=== PATIENT | male | born 1955 | race Caucasian/White ===

== ENCOUNTER 2021-03-19 09:06 | Inpatient (IN) | payer MEDICARE, OTHER ==
[~2021-03-19] VITALS: Ht 17.8 cm; Wt 59.9 kg
--- NOTE | 2021-03-19 09:10 | NUR ---
TO ER BED 1, [facility] FOR NOTED AMS. BG 56 GIVEN D10 FLAME BURNER. PT RESPONSIVE TO TOUCH/PAIN, DIALYSIS ACCESS RT CHEST. AT BEDSIDE
--- NOTE | 2021-03-19 09:17 | NUR ---
IV LINE ESTABLISHED BLOOD DRAWN AND SENT TO LAB.
[2021-03-19] MEDS ORDERED: IV D5/ 0.9% NACL 1,000 ML IV ONE (09:30)
[2021-03-19] MEDS ORDERED: VANCOMYCIN 1 GM in IV D5W 250 ML IV ONE (09:30)
[2021-03-19] MEDS ORDERED: CEFEPIME 1 GM in IV D5W 50 ML IV ONE (09:30)
[2021-03-19 09:35] LABS: BASOPHILS # (AUTO) 0.1 K/uL (0.0-0.2); BASOPHILS % (AUTO) 0.6 % (0.0-2.0); HEMATOCRIT 25 % (39-51); HEMOGLOBIN 7.8 g/dL (13.5-17.5); LYMPHOCYTES # (AUTO) 2.1 K/uL (0.8-4.8); LYMPHOCYTES % (AUTO) 12.8 % (20.0-44.0); MEAN CORPUSCULAR HGB CONC 31 g/dl (31.0-36.0); MEAN CORPUSCULAR VOLUME 87 fL (80-96); MONOCYTES # (AUTO) 2.2 K/uL (0.1-1.30); MONOCYTES % (AUTO) 13.7 % (2.0-12.0); NEUTROPHILS # (AUTO) 11.6 K/uL (1.8-8.9); NEUTROPHILS % (AUTO) 71.9 % (43.0-81.0); RED BLOOD CELL COUNT(AUTO) 2.86 MIL/uL (4.5-6.0); WHITE BLOOD COUNT (AUTO) 16.2 K/uL (4.3-11.0)
--- NOTE | 2021-03-19 09:38 | NUR ---
BARREL RAISER AT BEDSIDE FOR XRAY.
--- NOTE | 2021-03-19 09:39 | NUR ---
COVID SWAB DONE AND SENT TO LAB
--- NOTE | 2021-03-19 09:39 | NUR ---
REPAIRER AUTO CLOCKS AT BEDSIDE
[2021-03-19 10:07] LABS: ALANINE AMINOTRANSFERASE 10 U/L (12-78); ALBUMIN 1.9 g/dL (3.4-5.0); ALKALINE PHOSPHATASE 126 U/L (46-116); ASPARTATE AMINOTRANSFERASE 33 U/L (15-37); BILIRUBIN,DIRECT 0.2 mg/dL (0.0-0.2); BILIRUBIN,TOTAL 0.4 mg/dL (0.2-1.0); CALCIUM, SERUM 7.7 mg/dL (8.5-10.1); CARBON DIOXIDE 25 mmol/L (21-32); CHLORIDE 95 mmol/L (98-107); POTASSIUM 5.7 mmol/L (3.5-5.1); SODIUM SERUM 134 mmol/L (136-145); TOTAL PROTEIN, SERUM 7.7 g/dL (6.4-8.2)
[2021-03-19 10:10] LABS: CREATININE 8.6 mg/dL (0.6-1.3); GLUCOSE 50 mg/dL (74-106); UREA NITROGEN, BLOOD 86 mg/dL (7-18)
[2021-03-19] MEDS ORDERED: HYDR-4076 PO (10:12)
[2021-03-19] MEDS ORDERED: GABA-532 PO (10:12)
[2021-03-19] MEDS ORDERED: LAMO25TA10 PO (10:12)
[2021-03-19] MEDS ORDERED: TIZA4TAB5 PO (10:12)
[2021-03-19] MEDS ORDERED: LEVO150T8 PO (10:12)
[2021-03-19] MEDS ORDERED: FAMO20TA8 PO (10:12)
[2021-03-19] MEDS ORDERED: HYDR4TAB4 PO (10:12)
[2021-03-19] MEDS ORDERED: ALBU1.257 IH (10:12)
[2021-03-19] MEDS ORDERED: HYDR4TAB57 PO (10:12)
[2021-03-19] MEDS ORDERED: ACET-868 PO (10:12)
[2021-03-19] MEDS ORDERED: PRAV20TA4 PO (10:12)
[2021-03-19] MEDS ORDERED: BISA10SU11 RC (10:12)
[2021-03-19] MEDS ORDERED: VANC1VIA4 IV (10:12)
[2021-03-19] MEDS ORDERED: AMLO-213 PO (10:12)
[2021-03-19] MEDS ORDERED: DIVA-78 PO (10:12)
[2021-03-19] MEDS ORDERED: INSU100V7 SQ (10:12)
[2021-03-19] MEDS ORDERED: LIOT5TAB11 PO (10:12)
[2021-03-19] MEDS ORDERED: SENN-261 PO (10:12)
[2021-03-19] MEDS ORDERED: CLON0.1T PO (10:12)
[2021-03-19] MEDS ORDERED: PETR113O TP (10:12)
[2021-03-19] MEDS ORDERED: TRAZ-182 PO (10:12)
[2021-03-19] MEDS ORDERED: INSU100V27 SQ (10:12)
[2021-03-19] MEDS ORDERED: MERO500V23 IV (10:12)
[2021-03-19] MEDS ORDERED: MESA1.2T PO (10:12)
[2021-03-19] MEDS ORDERED: IPRA0.2S9 IH (10:12)
[2021-03-19] MEDS ORDERED: APIX2.5T PO (10:12)
--- NOTE | 2021-03-19 10:14 | NUR ---
MOVE SHEET SUBMITTED.
--- NOTE | 2021-03-19 10:27 | NUR ---
TAKEN TO CT
[2021-03-19 10:43] LABS: PLATELET COUNT (AUTO) 975 K/uL (150-450)
--- NOTE | 2021-03-19 10:52 | NUR ---
[facility] CALLED WHITE SUGAR SUPERVISOR PAGED.
--- NOTE | 2021-03-19 11:06 | NUR ---
PT IS AWAKE, AAOX3, C/O PAIN IN HIS NECK
--- NOTE | 2021-03-19 11:48 | NUR ---
CALLED [facility] FOR THE SECOND TIME. WILL PAGED HOSPITALIST (ISABEL OLIVARES) AWAITING CALL BACK.
--- NOTE | 2021-03-19 14:16 | NUR ---
report given to [place] RN for JOHN
[2021-03-19] MEDS ORDERED: BISACODYL SUPP (10 MG) 10 MG/SUPP.RECT SUPP.RECT RC PRN (15:00)
--- NOTE | 2021-03-19 15:00 | NUR ---
RN NOTES HEMODIALYSIS CONSENT SIGNED.
[2021-03-19] MEDS ORDERED: ONDANSETRON HCL/PF 4 MG/2 ML VIAL IVP PRN (15:30)
[2021-03-19] MEDS ORDERED: ZOLPIDEM TARTRATE 5 MG TABLET PO PRN (15:30)
[2021-03-19] MEDS ORDERED: Z GUARD REMEDY 2 OZ OINT TP PRN (15:30)
[2021-03-19] MEDS ORDERED: MORPHINE SULFATE INJ 2 MG/ML DISP.SYRIN IV PRN (15:30)
[2021-03-19] MEDS: ALBUTEROL FS 2.5 MG/0.5 ML VIAL.NEB NEB SCH ×3 (15:30→20:14)
[2021-03-19] MEDS: IPRATROPIUM NEB FS 0.5 MG/2.5 ML AMPUL.NEB NEB SCH ×3 (15:30→20:14)
[2021-03-19] MEDS ORDERED: MAG HYDROX/AL HYDROX/SIMETH 30 ML UDC PO PRN (15:30)
[2021-03-19] MEDS ORDERED: MAGNESIUM HYDROXIDE 30 ML UDC PO PRN (15:30)
--- NOTE | 2021-03-19 15:38 | NUR ---
RN NOTES PT REQUESTED MORPHINE PAIN 10 OUT OF 10 RETURNED WITH 2ML OF MORPHINE. PT ASLEEP AND ABLE TO AWAKE BUT DROWSY. WILL HOLD MORPHINE AND RETURNED MORPHINE. WILL RECHECK PAIN ONCE PT AWAKES.
--- NOTE | 2021-03-19 15:55 | NUR ---
RT HHN tx not given at this time due to pending PCR results.
[2021-03-19] MEDS: GABAPENTIN 100 MG CAPSULE PO SCH (16:54)
[2021-03-19] MEDS: APIXABAN 2.5 MG TABLET PO SCH (16:55)
--- NOTE | 2021-03-19 17:00 | NUR ---
RN NOTES ABX NOT ADMINISTERED PER DIALYSIS NURSE. WILL ADMINISTER AFTER DIALYSIS
[2021-03-19] MEDS: MEROPENEM 500 MG in IV NS 0.9% 50 ML IV SCH (18:50)
--- NOTE | 2021-03-19 19:20 | NUR ---
Preliminary results of echo showed EF 70% with moderate PE and large pleural eff. Advised RN and sent message to packaging assembler of initial findings.
--- NOTE | 2021-03-19 19:30 | NUR ---
1929 breathing tx held due to pending pcr result. rn notified
[2021-03-19] MEDS: MORPHINE SULFATE INJ 2 MG/ML DISP.SYRIN IV PRN (19:50)
[2021-03-19 20:00] VITALS: BP 150/88
--- NOTE | 2021-03-19 20:16 | NUR ---
RN NOTE PATIENT IN BED, RESTING. EASILY AROUSED. ALERT AND ORIENTED X3. ON O2 2L VIA NASAL CANNULA, O2 SAT 96%. CRACKLES NOTED UPON LUNG AUSCULTATION. HEAD OF BED KEPT ELEVATED. COMPLAINED OF SEVERE NECK PAIN, ADMINISTERED MORPHINE PRN ORDERED. IV ACCESS ON LEFT ARM # 20 PATENT AND INTACT. ALSO NOTED WITH RIGHT CHEST PERMACATH, DRESSING DRY AND INTACT. BED LOCKED AND IN LOWEST POSITION. CALL LIGHT WITHIN REACH. ALL NEEDS ANTICIPATED.
[2021-03-19 20:52] LABS: ABG BASE EXCESS 0.9 mmol/L; ABG OXYGEN SATURATION 95.1 % (92.0-98.5); ABG PCO2 37.2 mmHg (35.0-45.0); ABG PH 7.445 (7.350-7.450); ABG PO2 79.8 mmHg (75.0-100.0); AaDO2 75.9 mmHg; COHb 0.8 % (0.5-1.5); MetHb 0.3 % (0.0-1.5); O2Hb 94.1 % (94.0-97.0); SITE, ABG Right Radial; VENT MODE, BG N/C 2L
[2021-03-19] MEDS: LamoTRIgine 25 MG TABLET PO SCH (21:27)
[2021-03-19] MEDS: ATORVASTATIN 10 MG TABLET PO SCH (21:28)
[2021-03-19] MEDS: TRAZODONE 50 MG TABLET PO SCH (21:28)
[2021-03-19] MEDS: hydrALAZINE HCL 25 MG TABLET PO SCH (21:28)
[2021-03-19] MEDS: CLONIDINE HCL 0.1 MG TABLET PO SCH (21:29)
[2021-03-19 21:59] LABS: THYROID STIMULATING HORMONE 38.854 uIU/mL (0.358-3.74)
[2021-03-19] MEDS: IV D5/0.45 NACL 1,000 ML IV PRN (23:07)
[2021-03-20] VITALS: BP 152/91
[2021-03-20] MEDS: MORPHINE SULFATE INJ 2 MG/ML DISP.SYRIN IV PRN ×4 (01:23→19:41)
[2021-03-20 04:00] VITALS: BP 149/92
[2021-03-20] MEDS: hydrALAZINE HCL 25 MG TABLET PO SCH ×3 (04:39→21:14)
[2021-03-20] MEDS: CLONIDINE HCL 0.1 MG TABLET PO SCH ×3 (04:39→21:14)
[2021-03-20 07:00] LABS: BASOPHILS % (AUTO) 0.4 % (0.0-2.0); HEMATOCRIT 22 % (39-51); HEMOGLOBIN 7.1 g/dL (13.5-17.5); LYMPHOCYTES # (AUTO) 1.2 K/uL (0.8-4.8); LYMPHOCYTES % (AUTO) 10.9 % (20.0-44.0); MEAN CORPUSCULAR HGB CONC 33 g/dl (31.0-36.0); MEAN CORPUSCULAR VOLUME 87 fL (80-96); MONOCYTES # (AUTO) 1.8 K/uL (0.1-1.30); MONOCYTES % (AUTO) 16.2 % (2.0-12.0); NEUTROPHILS # (AUTO) 6.8 K/uL (1.8-8.9); NEUTROPHILS % (AUTO) 62.5 % (43.0-81.0); PLATELET COUNT (AUTO) 806 K/uL (150-450); WHITE BLOOD COUNT (AUTO) 10.9 K/uL (4.3-11.0)
--- NOTE | 2021-03-20 07:14 | NUR ---
RN NOTE PATIENT ALERT AND ORIENTED X3. ON O2 2L VIA NASAL CANNULA, O2 SAT 96%. MORPHINE GIVEN ORDERED FOR SEVERE PAIN ON NECK. IV ACCESS ON LEFT ARM # 20 PATENT AND INTACT, RUNNING D5 1/2 NS @ 75ML/HR. RIGHT CHEST PERMACATH DRESSING DRY AND INTACT. BED LOCKED AND IN LOWEST POSITION. CALL LIGHT WITHIN REACH. ENDORSED TO AM SHIFT.
--- NOTE | 2021-03-20 07:28 | NUR ---
RN OPENING NOTES RECEIVED PT IN BED SLEEPING. PT A/OX3. ON O2 NC W/ O2 SAT 96%. IV ACCESS ON LEFT ARM # 20 PATENT AND INTACT, RUNNING D5 1/2 NS @ 75ML/HR. RIGHT CHEST PERMACATH DRESSING DRY AND INTACT. SAFETY MEASURES RENDERED, BED LOCKED AND IN LOWEST POSITION. CALL LIGHT WITHIN REACH. WILL CONTINUE TO MONITOR.
[2021-03-20 07:37] LABS: ALBUMIN 1.7 g/dL (3.4-5.0); BILIRUBIN,TOTAL 0.4 mg/dL (0.2-1.0); CALCIUM, SERUM 7.6 mg/dL (8.5-10.1); CREATININE 5.1 mg/dL (0.6-1.3); MAGNESIUM 2.8 mg/dL (1.8-2.4); PHOSPHORUS 5.3 mg/dL (2.5-4.9); POTASSIUM 4.3 mmol/L (3.5-5.1); TOTAL PROTEIN, SERUM 6.9 g/dL (6.4-8.2)
[2021-03-20] MEDS: BLOOD SUGAR DIAGNOSTIC 1 EACH STRIP IN SCH ×4 (07:46→21:54)
--- NOTE | 2021-03-20 07:46 | NUR ---
RN NOTES; B/S TAKEN AT 168. NO SLIDING SCALE DUE TO PT COMING IN FOR HYPOGLYCEMIA. WILL CONTINUE TO MONITOR.
[2021-03-20 08:00] VITALS: BP 161/98
[2021-03-20] MEDS: IPRATROPIUM NEB FS 0.5 MG/2.5 ML AMPUL.NEB NEB SCH ×4 (08:00→19:59)
[2021-03-20] MEDS: ALBUTEROL FS 2.5 MG/0.5 ML VIAL.NEB NEB SCH ×4 (08:00→20:00)
--- NOTE | 2021-03-20 08:00 | NUR ---
RT Pt received awake and alert on 2L nasal cannula with adequate SpO2. HHN tx not given at this time due to pending PCR results. No SOB or respiratory distress noted.
[2021-03-20] MEDS: GABAPENTIN 100 MG CAPSULE PO SCH ×2 (08:52→16:28)
[2021-03-20] MEDS: LamoTRIgine 25 MG TABLET PO SCH ×2 (08:52→21:14)
[2021-03-20] MEDS: AMLODIPINE BESYLATE 10 MG TABLET PO SCH (08:52)
[2021-03-20] MEDS: PANTOPRAZOLE 40 MG VIAL IV SCH (08:53)
[2021-03-20] MEDS: DIVALPROEX SODIUM 500 MG TABLET.DR PO SCH (08:53)
[2021-03-20] MEDS: APIXABAN 2.5 MG TABLET PO SCH ×2 (08:53→16:29)
[2021-03-20] MEDS ORDERED: LEVOTHYROXINE SODIUM 50 MCG TABLET PO SCH (09:00)
[2021-03-20] MEDS ORDERED: VANCOMYCIN 500 MG in IV D5W 100 ML IV PRN (10:00)
[2021-03-20 10:11] LABS: EOSINOPHILS % (MANUAL) 2 % (0-4); LYMPHOCYTES % (MANUAL) 12 % (16-48); MONOCYTES % (MANUAL) 16 % (0-11.0); NEUTROPHILS % (MANUAL) 70 (42-76)
[2021-03-20 12:00] VITALS: BP 148/82
--- NOTE | 2021-03-20 12:00 | NUR ---
RN NOTES; B/S TAKEN AT 249. NO ORDER FOR COVERAGE. NOTIFIED DNP REGARDING PT B/S RESULTS. AWAITING FOR FURTHER ORDERS.
[2021-03-20] MEDS: IV D5/0.45 NACL 1,000 ML IV PRN (15:23)
[2021-03-20 16:00] VITALS: BP 146/87
[2021-03-20] MEDS: MEROPENEM 500 MG in IV NS 0.9% 50 ML IV SCH (16:30)
--- NOTE | 2021-03-20 18:32 | NUR ---
RN CLOSING NOTES; PT IN BED RESTING. PT A/OX3. ON O2 NC W/ O2 SAT 98%. IV ACCESS ON LEFT ARM # 20 PATENT AND INTACT, RUNNING D5 1/2 NS @ 75ML/HR. RIGHT CHEST PERMACATH DRESSING DRY AND INTACT. NO SIGNIFICANT CHANGE IN CONDITION. SAFETY MEASURES RENDERED, BED LOCKED AND IN LOWEST POSITION. CALL LIGHT WITHIN REACH. ENDORSED TO DISTRICT CLAIMS MANAGER RN IN STABLE CONDITION.
--- NOTE | 2021-03-20 20:10 | NUR ---
RN NOTES PATIENT ALERT AND ORIENTED X2-3. ABLE TO MAKE NEEDS KNOWN. ON O2 2L VIA NASAL CANNULA, NO SIGNS OF ACUTE RESPIRATORY DISTRESS. LEFT ARM #20 RUNNING D5 1/2 NS @ 75ML/HR, NO SIGNS OF INFILTRATION. COMPLAINED OF SEVERE NECK PAIN, MORPHINE PRN GIVEN ORDERED. BED LOCKED AND IN LOWEST POSITION. CALL LIGHT WITHIN REACH. ALL NEEDS ANTICIPATED.
[2021-03-20] MEDS: ATORVASTATIN 10 MG TABLET PO SCH (21:13)
[2021-03-20] MEDS: TRAZODONE 50 MG TABLET PO SCH (21:13)
--- NOTE | 2021-03-20 21:59 | NUR ---
BLOOD SUGAR 211, NO SLIDING SCALE COVERAGE AT THIS TIME. PATIENT REMAINS ALERT AND RESPONSIVE, ON 2L VIA NASAL CANNULA. ENDORSED TO ADELE HAGER FOR CONTINUITY OF CARE.
--- NOTE | 2021-03-20 22:00 | NUR ---
RN NOTE RECEIVED HAND-OFF REPORT FROM RN FOR CONTINUITY OF CARE. PT IN BED, AWAKE, A/O X2-3, DENIES PAIN @THIS TIME. ON O2 @2LPM VIA NC. NO SOB. IV SITE: L-ARM #20 INTACT/PATENT. PT IN NO ACUTE DISTRESS. SAFETY MEASURES IN PLACE, BED IN LOWEST LOCKED POSITION, S/R UPX2, CALL LIGHT WITHIN REACH. WILL CONT TO MONITOR.
[2021-03-21] VITALS (13 sets, daily range): BP systolic 110–151; BP diastolic 63–121
[2021-03-21] MEDS: MORPHINE SULFATE INJ 2 MG/ML DISP.SYRIN IV PRN ×3 (00:29→08:46)
--- NOTE | 2021-03-21 03:08 | NUR ---
RN NOTE TRANSFERRED PT TO MS RM.[id number] WITH BELONGINGS. PT IN STABLE CONDITION. REPORT GIVEN TO MELIDA HAGER, FOR CONTINUITY OF CARE.
--- NOTE | 2021-03-21 03:09 | NUR ---
MS RN OPENING NOTE PT TRANSPORTED VIA GURNEY TO MED SURG UNIT FROM [facility]. RECEIVED PT AWAKE IN BED. A/O X2-3. PT IS ON 2LPM O2 VIA NC SATTING AT 97%. NO SOB OR S/S OF RESPIRATORY DISTRESS NOTED. PT HAS NO C/O PAIN OR DISCOMFORT AT THIS TIME. IV ACCESS IN LEFT ARM #20, INTACT AND PATENT. PT NOTED WITH RCW PERMACATH INTACT. ORIENTED PT TO STAFF, UNIT, AND ROOM. SAFETY PRECAUTIONS MAINTAINED. BED IN LOWEST LOCKED POSITION, HOB ELEVATED, SIDE RAILS UP X2. CALL LIGHT AND TABLE WITHIN REACH. WILL CONTINUE WITH PLAN OF CARE.
--- NOTE | 2021-03-21 04:38 | NUR ---
RN PAIN PT C/O THROBBING PAIN IN THE LEFT AND RIGHT NECK, RATED 9/10 ON PAIN SCALE. VSS. PER PT REQUEST, ADMINISTERED MORPHINE 2MG IV Q4H PRN FOR PAIN. WILL REASSESS IN 30 MINS AND CONTINUE TO MONITOR.
[2021-03-21] MEDS: IV D5/0.45 NACL 1,000 ML IV PRN ×2 (04:41→23:18)
[2021-03-21] MEDS: hydrALAZINE HCL 25 MG TABLET PO SCH ×3 (05:08→20:55)
[2021-03-21] MEDS: CLONIDINE HCL 0.1 MG TABLET PO SCH ×3 (05:08→20:54)
[2021-03-21] MEDS: BLOOD SUGAR DIAGNOSTIC 1 EACH STRIP IN SCH ×4 (06:31→22:41)
--- NOTE | 2021-03-21 06:32 | NUR ---
MS RN CLOSING NOTE PT IS AWAKE IN BED. A/O X2-3. PT IS ON 2LPM O2 VIA NC SATTING AT 95%. NO SOB OR S/S OF RESPIRATORY DISTRESS NOTED. PT HAS NO C/O PAIN OR DISCOMFORT AT THIS TIME. IV ACCESS IS INTACT, PATENT, AND FLUSHING WELL. PT NOTED WITH RCW PERMACATH INTACT. ALL NEEDS HAVE BEEN MET. SAFETY PRECAUTIONS MAINTAINED AT ALL TIMES. BED IN LOWEST LOCKED POSITION, HOB ELEVATED, SIDE RAILS UP X2. CALL LIGHT AND TABLE WITHIN REACH. WILL ENDORSE TO ONCOMING NURSE FOR JOHN.
[2021-03-21 07:13] LABS: BASOPHILS # (AUTO) 0.1 K/uL (0.0-0.2); BASOPHILS % (AUTO) 0.7 % (0.0-2.0); EOSINOPHILS % (AUTO) 10.8 % (0.0-6.0); LYMPHOCYTES # (AUTO) 1.6 K/uL (0.8-4.8); LYMPHOCYTES % (AUTO) 14.5 % (20.0-44.0); MEAN CORPUSCULAR HGB CONC 32 g/dl (31.0-36.0); MEAN CORPUSCULAR VOLUME 88 fL (80-96); MONOCYTES # (AUTO) 2.1 K/uL (0.1-1.30); MONOCYTES % (AUTO) 19.1 % (2.0-12.0); NEUTROPHILS % (AUTO) 54.9 % (43.0-81.0); PLATELET COUNT (AUTO) 707 K/uL (150-450); RED BLOOD CELL COUNT(AUTO) 2.23 MIL/uL (4.5-6.0)
[2021-03-21 07:30] LABS: HEMATOCRIT 20 % (39-51)
--- NOTE | 2021-03-21 07:30 | NUR ---
MS RN OPENING NOTES RECEIVED PT IS AWAKE ON BED AND A/O X2-3. PT IS ON 2LPM O2 VIA NC WITH O2 SAT AT 99%. NO SOB OR S/S OF RESPIRATORY DISTRESS NOTED. WITH COMPLAINTS OF NECK PAIN AT 10/10 PAIN SCALE. COMFORT MEASURES PROVIDED. WITH IV ACCESS AT LEFT ARM G20 WITH IVF D5 1/2NS AT 75ML/HR, INTACT, PATENT, AND FLUSHING WELL. PT NOTED WITH RCW PERMACATH INTACT. SAFETY PRECAUTIONS MAINTAINED AT ALL TIMES. BED IN LOWEST LOCKED POSITION, HOB ELEVATED, SIDE RAILS UP X2. CALL LIGHT AND TABLE WITHIN REACH. WILL CONTINUE TO MONITOR.
[2021-03-21 07:38] LABS: HEMOGLOBIN 6.4 g/dL (13.5-17.5)
--- NOTE | 2021-03-21 07:38 | NUR ---
MS RN NOTES RECEIVED A CALL FROM THE LAB NAMED AD RELAYING CRITICAL LAB RESULTS. HGB-6.[address] IS [address] OLIVARES MADE AWARE OF THE PATIENT'S HGB AND HCT RESULTS.
[2021-03-21 07:54] LABS: POTASSIUM 4.5 mmol/L (3.5-5.1)
[2021-03-21 07:55] LABS: CALCIUM, SERUM 7.4 mg/dL (8.5-10.1); CREATININE 5.9 mg/dL (0.6-1.3); PHOSPHORUS 6.3 mg/dL (2.5-4.9)
[2021-03-21] MEDS: ALBUTEROL FS 2.5 MG/0.5 ML VIAL.NEB NEB SCH ×4 (08:10→19:33)
[2021-03-21] MEDS: IPRATROPIUM NEB FS 0.5 MG/2.5 ML AMPUL.NEB NEB SCH ×4 (08:10→19:33)
[2021-03-21 08:49] LABS: EOSINOPHILS % (MANUAL) 9 % (0-4); LYMPHOCYTES % (MANUAL) 19 % (16-48); MONOCYTES % (MANUAL) 14 % (0-11.0); NEUTROPHILS % (MANUAL) 58 (42-76)
[2021-03-21] MEDS: PANTOPRAZOLE 40 MG VIAL IV SCH (08:51)
[2021-03-21] MEDS: GABAPENTIN 100 MG CAPSULE PO SCH ×2 (08:51→17:16)
[2021-03-21] MEDS: LEVOTHYROXINE SODIUM 50 MCG TABLET PO SCH (08:51)
[2021-03-21] MEDS: AMLODIPINE BESYLATE 10 MG TABLET PO SCH (08:52)
[2021-03-21] MEDS: DIVALPROEX SODIUM 500 MG TABLET.DR PO SCH (08:52)
[2021-03-21] MEDS: APIXABAN 2.5 MG TABLET PO SCH (09:00)
[2021-03-21] MEDS: LamoTRIgine 25 MG TABLET PO SCH ×2 (09:21→21:06)
--- NOTE | 2021-03-21 09:43 | NUR ---
MS RN NOTES CALLED BLOOD BANK NAMED LOBO TO BE INFORMED FOR PATIENT'S BLOOD TRANSFUSION. BLOOD TRANSFUSION AND HEMODIALYSIS CONSENT BEEN SIGNED BY THE PATIENT.
[2021-03-21] MEDS ORDERED: EPOETIN ALFA-EPBX 4,000 UNIT/ML VIAL IV PRN (11:00)
--- NOTE | 2021-03-21 13:23 | NUR ---
MS RN NOTES PATIENT FOR BLOOD TRANSFUSION PER DOCTOR'S ORDER. BLOOD TRANSFUSION CONSENT SIGNED. CHECKED BLOOD PRODUCT WITH AN RN ADE BAUER. VITAL SIGNS CHECKED: BP-110/63, CA-61BPM, TEMP-98F, RR-19 AND 02 SAT AT 98%. BLOOD TRANSFUSION TO BE DONE WITH HEMODIALYSIS WITH HEMODIALYSIS PERSONNEL NAMED ARCELIA. WILL CONTINUE TO MONITOR FOR ANY UNUSUAL REACTIONS.
[2021-03-21] MEDS: ACETAMINOPHEN 325 MG TABLET PO PRN ×2 (15:52→20:56)
[2021-03-21] MEDS: MEROPENEM 500 MG in IV NS 0.9% 50 ML IV SCH (17:16)
--- NOTE | 2021-03-21 19:20 | NUR ---
MS RN CLOSING NOTES PT IS AWAKE ON BED AND A/O X2-3. PT IS ON 2LPM O2 VIA NC WITH O2 SAT AT 99%. NO SOB OR S/S OF RESPIRATORY DISTRESS NOTED. COMFORT MEASURES PROVIDED. WITH IV ACCESS AT LEFT ARM G20 WITH IVF D5 1/2NS AT 75ML/HR, INTACT, PATENT, AND FLUSHING WELL. PT NOTED WITH RCW PERMACATH INTACT. SAFETY PRECAUTIONS MAINTAINED AT ALL TIMES. BED IN LOWEST LOCKED POSITION, HOB ELEVATED, SIDE RAILS UP X2. CALL LIGHT AND TABLE WITHIN REACH. WILL ENDORSE TO NEXT SHIFT.
--- NOTE | 2021-03-21 19:30 | NUR ---
Received patient alert when name spoken opens eye LEFT arm IV red and swollen dc'd and restarted right arm g18 IV restarted patient feels warm to touch temp 100.3 tylenol is ordered offered a drink of juice given and swallowed w/o problem asp precautions his phone is near him follows directions
[2021-03-21] MEDS: ATORVASTATIN 10 MG TABLET PO SCH (21:06)
[2021-03-21] MEDS: TRAZODONE 50 MG TABLET PO SCH (21:06)
--- NOTE | 2021-03-22 03:51 | NUR ---
CLOSING NOTES: ALERT AND ORIENTATED x2 WILL MAKE HIS SIMPLE NEEDS KNOWN SPEECH CLEAR ASPIRATION PRECAUTIONS THIS 12 HOURS OFFERED FLUIDS AND SWALLOWED W/O PROBLEM BLOOD SUGARS NOT DROPPING BELOW NORM SKIN WARM AND DRY NEEDS MAX ASSIST TO MOVE ABOUT IN BED GOOD ABOUT BEING REPOSITIONED
[2021-03-22] MEDS: hydrALAZINE HCL 25 MG TABLET PO SCH ×2 (04:09→12:32)
[2021-03-22] MEDS: CLONIDINE HCL 0.1 MG TABLET PO SCH ×2 (04:10→12:32)
[2021-03-22] MEDS: BLOOD SUGAR DIAGNOSTIC 1 EACH STRIP IN SCH ×2 (05:44→11:43)
[2021-03-22] MEDS: IPRATROPIUM NEB FS 0.5 MG/2.5 ML AMPUL.NEB NEB SCH ×3 (07:21→15:37)
[2021-03-22] MEDS: ALBUTEROL FS 2.5 MG/0.5 ML VIAL.NEB NEB SCH ×3 (07:21→15:37)
[2021-03-22] MEDS: LEVOTHYROXINE SODIUM 50 MCG TABLET PO SCH (07:30)
[2021-03-22] MEDS ORDERED: PANTOPRAZOLE 40 MG TABLET.DR PO SCH (07:30)
--- NOTE | 2021-03-22 07:45 | NUR ---
MS RN OPENING NOTES RECEIVED PATIENT IN BED, AWAKE, A/OX2. PATIENT ON OXYGEN THERAPY AT 2 LPM VIA NASAL CANULA; BREATHING EVEN AND UNLABORED AT THIS TIME. COMPLAINING OF NECK PAIN. MARCO A IV ACCESS G #18 PRESENT AND INTACT INFUSING D5 1/2 NS @ 75 MLS/HR. SAFETY PRECAUTIONS IN PLACE; BED IN LOW POSITION AND LOCKED, RAILS UP X2, CALL LIGHT WITHIN REACH. WILL CONTINUE TO MONITOR PATIENT.
[2021-03-22 08:00] VITALS: BP 140/83
[2021-03-22] MEDS: GABAPENTIN 100 MG CAPSULE PO SCH ×2 (08:15→16:02)
[2021-03-22] MEDS: LamoTRIgine 25 MG TABLET PO SCH (08:15)
[2021-03-22] MEDS: AMLODIPINE BESYLATE 10 MG TABLET PO SCH (08:15)
[2021-03-22] MEDS: DIVALPROEX SODIUM 500 MG TABLET.DR PO SCH (08:16)
[2021-03-22] MEDS: MORPHINE SULFATE INJ 2 MG/ML DISP.SYRIN IV PRN ×2 (08:20→13:39)
--- NOTE | 2021-03-22 08:20 | NUR ---
MS RN NOTES PATIENT COMPLAINING OF NECK PAIN 8 OUT OF 10. PRN MORPHINE ADMINISTERED. WILL REASSESS.
[2021-03-22 08:48] LABS: BASOPHILS % (AUTO) 0.3 % (0.0-2.0); EOSINOPHILS % (AUTO) 10.5 % (0.0-6.0); HEMATOCRIT 33 % (39-51); HEMOGLOBIN 10.9 g/dL (13.5-17.5); LYMPHOCYTES # (AUTO) 1.6 K/uL (0.8-4.8); LYMPHOCYTES % (AUTO) 15.8 % (20.0-44.0); MEAN CORPUSCULAR HGB CONC 33 g/dl (31.0-36.0); MEAN CORPUSCULAR VOLUME 89 fL (80-96); MONOCYTES # (AUTO) 1.9 K/uL (0.1-1.30); MONOCYTES % (AUTO) 18.9 % (2.0-12.0); NEUTROPHILS # (AUTO) 5.5 K/uL (1.8-8.9); NEUTROPHILS % (AUTO) 54.5 % (43.0-81.0); PLATELET COUNT (AUTO) 623 K/uL (150-450); RED BLOOD CELL COUNT(AUTO) 3.68 MIL/uL (4.5-6.0)
[2021-03-22 09:01] LABS: CALCIUM, SERUM 7.5 mg/dL (8.5-10.1); CREATININE 4.4 mg/dL (0.6-1.3); MAGNESIUM 2.5 mg/dL (1.8-2.4); POTASSIUM 4.2 mmol/L (3.5-5.1)
[2021-03-22] MEDS: APIXABAN 2.5 MG TABLET PO SCH ×2 (09:25→16:02)
[2021-03-22 09:47] LABS: EOSINOPHILS % (MANUAL) 4 % (0-4); LYMPHOCYTES % (MANUAL) 19 % (16-48); MONOCYTES % (MANUAL) 14 % (0-11.0); NEUTROPHILS % (MANUAL) 63 (42-76)
[2021-03-22] MEDS: ACETAMINOPHEN 325 MG TABLET PO PRN (10:52)
[2021-03-22] MEDS ORDERED: GUAIFENESIN/D-METHORPHAN HB 5 ML UDC PO PRN (11:30)
[2021-03-22] MEDS ORDERED: HYDR-4076 PO (12:45)
[2021-03-22] MEDS ORDERED: EPOE40007 IV (12:45)
[2021-03-22] MEDS: IV D5/0.45 NACL 1,000 ML IV PRN (13:15)
--- NOTE | 2021-03-22 13:41 | NUR ---
MS RN NOTES PATIENT COMPLAINING OF NECK PAIN 9 OUT OF 10. PRN MORPHINE ADMINISTERED. WILL REASSESS.
[2021-03-22 15:58] VITALS: BP 102/56
[2021-03-22] MEDS: MEROPENEM 500 MG in IV NS 0.9% 50 ML IV SCH (16:02)
--- NOTE | 2021-03-22 16:40 | NUR ---
MS METAL STAMPER NOTES PATIENT DISCHARGED BACK TO SNF IN MEDICALLY STABLE CONDITION. PATIENT A/O X2. ALL DISCHARGE DOCUMENTATIONS READY AND REVIEWED WITH PATIENT; SIGNED BY 2 RNs; PATIENT UNABLE TO SIGN. BELONGINGS ACCOUNTED FOR AND FORM SIGNED WELL. SKIN INTACT. IV ACCESS REMOVED PRIOR TO PATIENT LEAVING THE UNIT. WRISTBAND REMOVED WELL. FACILITY CALLED AND REPORT GIVEN TO TJ. PATIENT LEFT THE UNIT VIA GURNEY ACCOMPANIED BY 2 associate store leader AT [id number].
== END 2021-03-22 16:40 | DRG 871 ==
LOC: ER 09:11 → TELE1 13:55 → MEDSG1 03-20 08:15 → MED 03-21 02:59
PROVIDERS: ADMIT Nurse Practitioner Acute Care; ATTEND Student in an Organized Health Care Education/Training Program
PROC: 5A1D70Z Performance of Urinary Filtration, Intermittent, Less than 6 Hours Per Day (ICD-10-PCS; principal; 2021-03-19)
PROC: 30233N1 Transfusion of Nonautologous Red Blood Cells into Peripheral Vein, Percutaneous Approach (ICD-10-PCS; 2021-03-21)
DX: A41.9 Sepsis, unspecified organism (principal); N18.6 End stage renal disease; I50.33 Acute on chronic diastolic (congestive) heart failure; G92 Toxic encephalopathy; E87.1 Hypo-osmolality and hyponatremia; J96.10 Chronic respiratory failure, unspecified whether with hypoxia or hypercapnia; I13.2 Hypertensive heart and chronic kidney disease with heart failure and with stage 5 chronic kidney disease, or end stage renal disease; I31.3 Pericardial effusion (noninflammatory); D68.59 Other primary thrombophilia; K51.90 Ulcerative colitis, unspecified, without complications; D63.1 Anemia in chronic kidney disease; E11.22 Type 2 diabetes mellitus with diabetic chronic kidney disease; Z99.2 Dependence on renal dialysis; Z20.822 Contact with and (suspected) exposure to COVID-19; E78.5 Hyperlipidemia, unspecified; F31.9 Bipolar disorder, unspecified; Z79.51 Long term (current) use of inhaled steroids; F39 Unspecified mood [affective] disorder; Z79.4 Long term (current) use of insulin; Z79.899 Other long term (current) drug therapy; Z79.01 Long term (current) use of anticoagulants; E87.5 Hyperkalemia; M89.9 Disorder of bone, unspecified; E03.9 Hypothyroidism, unspecified; E11.40 Type 2 diabetes mellitus with diabetic neuropathy, unspecified; Z86.711 Personal history of pulmonary embolism; E11.649 Type 2 diabetes mellitus with hypoglycemia without coma; D47.3 Essential (hemorrhagic) thrombocythemia; H70.91 Unspecified mastoiditis, right ear; R91.8 Other nonspecific abnormal finding of lung field
CPT/HCPCS: 31720; 36415; 36600; 70450-TC; 71045-TC; 80048-TC; 80053-TC; 80061-TC; 80076-TC; 80202-TC; 82962-TC; 83540-TC; 83605-TC; 83735-TC; 84100-TC; 84439-TC; 84443-TC; 84484-TC; 85025-TC; 85730-TC; 86706; 86850-TC; 87040-TC; 87081-TC; 87340; 90935-TC; 93307-TC; 94799-TC; C9113; G0378; J0692; J2185; J2270; J3370; J3490; J7030; J7042; J7060; P9016; U0003

== ENCOUNTER 2021-03-28 12:06 | Inpatient (IN) | payer MEDICARE, OTHER ==
[~2021-03-28] VITALS: Ht 177.8 cm; Wt 61.7 kg
[~2021-03-28 12:06] MED LIST: ACET-868 PO; ALBU1.257 IH; AMLO-213 PO; BISA10SU11 RC; CLON0.1T PO; DIVA-78 PO; EPOE40007 IV; FAMO20TA8 PO; GABA-532 PO; HYDR-4076 PO; HYDR4TAB4 PO; HYDR4TAB57 PO; INSU100V27 SQ; INSU100V7 SQ; IPRA0.2S9 IH; LAMO25TA10 PO; LEVO150T8 PO; LIOT5TAB11 PO; MERO500V23 IV; MESA1.2T PO; PETR113O TP; PRAV20TA4 PO; SENN-261 PO; TIZA4TAB5 PO; TRAZ-182 PO; VANC1VIA4 IV
--- NOTE | 2021-03-28 12:15 | NUR ---
PT BIBRA FROM DIALYSIS CENTER FOR NOTED LOW B/P. PT WAS NOT DIALYZEDTODAY. RECENTLY DISCHARGE FROM THE FLOOR. GOWNED AND PLACED ON MONITOR. AWAITING MD MELGAR.
--- NOTE | 2021-03-28 12:34 | NUR ---
dr dougherty at bedside for eval.
--- NOTE | 2021-03-28 12:50 | NUR ---
blood drawn sent to lab.
[2021-03-28] MEDS ORDERED: LORA-259 PO (12:58)
[2021-03-28] MEDS ORDERED: ACET-868 PO (12:58)
[2021-03-28] MEDS ORDERED: CICL6.6S5 TP (12:58)
[2021-03-28] MEDS ORDERED: TRIA15OI2 TP (12:58)
[2021-03-28] MEDS ORDERED: ZINC1CAP3 PO (12:58)
[2021-03-28] MEDS ORDERED: MULT-447 PO (12:58)
[2021-03-28] MEDS ORDERED: IV NS 0.9% 500 ML BAG IV ONE (13:00)
[2021-03-28 13:06] LABS: BASOPHILS # (AUTO) 0.1 K/uL (0.0-0.2); BASOPHILS % (AUTO) 0.5 % (0.0-2.0); EOSINOPHILS % (AUTO) 7.5 % (0.0-6.0); HEMATOCRIT 28 % (39-51); HEMOGLOBIN 8.8 g/dL (13.5-17.5); LYMPHOCYTES # (AUTO) 1.9 K/uL (0.8-4.8); LYMPHOCYTES % (AUTO) 16.7 % (20.0-44.0); MEAN CORPUSCULAR HGB CONC 32 g/dl (31.0-36.0); MEAN CORPUSCULAR VOLUME 91 fL (80-96); MONOCYTES # (AUTO) 2.2 K/uL (0.1-1.30); MONOCYTES % (AUTO) 18.8 % (2.0-12.0); NEUTROPHILS # (AUTO) 6.6 K/uL (1.8-8.9); NEUTROPHILS % (AUTO) 56.5 % (43.0-81.0); PLATELET COUNT (AUTO) 440 K/uL (150-450); RED BLOOD CELL COUNT(AUTO) 3.09 MIL/uL (4.5-6.0); WHITE BLOOD COUNT (AUTO) 11.6 K/uL (4.3-11.0)
[2021-03-28 13:35] LABS: CALCIUM, SERUM 6.9 mg/dL (8.5-10.1); CARBON DIOXIDE 28 mmol/L (21-32); CHLORIDE 102 mmol/L (98-107); CREATININE 6.9 mg/dL (0.6-1.3); GLUCOSE 63 mg/dL (74-106); SODIUM SERUM 140 mmol/L (136-145); UREA NITROGEN, BLOOD 40 mg/dL (7-18)
[2021-03-28 13:41] LABS: ALANINE AMINOTRANSFERASE 7 U/L (12-78); ALKALINE PHOSPHATASE 91 U/L (46-116); ASPARTATE AMINOTRANSFERASE 29 U/L (15-37); BILIRUBIN,DIRECT 0.1 mg/dL (0.0-0.2); BILIRUBIN,TOTAL 0.4 mg/dL (0.2-1.0); TOTAL PROTEIN, SERUM 5.7 g/dL (6.4-8.2)
[2021-03-28 13:46] LABS: ALBUMIN 1.4 g/dL (3.4-5.0)
--- NOTE | 2021-03-28 14:02 | NUR ---
NURSING SUP GAVE 115-1.
--- NOTE | 2021-03-28 14:44 | NUR ---
report given to naya quick. awaiting transferto floor.
[2021-03-28] MEDS ORDERED: TIZANIDINE HCL 4 MG TABLET PO PRN (15:00)
[2021-03-28] MEDS ORDERED: TRAZODONE 50 MG TABLET PO PRN (15:00)
[2021-03-28] MEDS ORDERED: ALBUTEROL HALF STRENGTH 1.25 MG/3 ML VIAL.NEB IH PRN (15:00)
[2021-03-28] MEDS ORDERED: ACETAMINOPHEN 325 MG TABLET PO PRN (15:00)
[2021-03-28] MEDS ORDERED: BISACODYL SUPP (10 MG) 10 MG/SUPP.RECT SUPP.RECT RC PRN (15:00)
[2021-03-28] MEDS ORDERED: IV NS 0.9% 1,000 ML IV ONE (15:00)
[2021-03-28] MEDS ORDERED: ONDANSETRON HCL/PF 4 MG/2 ML VIAL IVP PRN (15:00)
[2021-03-28] MEDS ORDERED: MAG HYDROX/AL HYDROX/SIMETH 30 ML UDC PO PRN (15:00)
[2021-03-28] MEDS ORDERED: MAGNESIUM HYDROXIDE 30 ML UDC PO PRN (15:00)
[2021-03-28] MEDS ORDERED: IPRATROPIUM HALF ST 0.25 MG/1.25 ML VIAL.NEB IH PRN (15:30)
[2021-03-28 16:00] VITALS: BP 81/52
[2021-03-28] MEDS: LamoTRIgine 25 MG TABLET PO SCH (17:00)
[2021-03-28] MEDS: MESALAMINE 400 MG CAP PO SCH (17:00)
[2021-03-28] MEDS: LIOTHYRONINE SODIUM (5 MCG/TA 5 MCG TABLET PO SCH (17:00)
[2021-03-28 17:06] LABS: BAND % (MANUAL) 2 % (0.0-5.0); EOSINOPHILS % (MANUAL) 7 % (0-4); LYMPHOCYTES % (MANUAL) 15 % (16-48); MONOCYTES % (MANUAL) 11 % (0-11.0); NEUTROPHILS % (MANUAL) 65 (42-76)
--- NOTE | 2021-03-28 17:36 | NUR ---
RN NOTES; 1700 ORAL MEDICATION NOT GIVEN, PT IS ALTERED. CANNOT SWALLOW PILLS AT THIS TIME.
[2021-03-28] MEDS ORDERED: VANCOMYCIN 1 GM in IV D5W 250 ML IV ONE (18:00)
--- NOTE | 2021-03-28 18:25 | NUR ---
RN CLOSING NOTES; RECEIVED PT FROM ER, PT IN R SIDE LYING POS. PT MENTAL STATUS ALTERED. PT RESPONSIVE TO STERNUM RUB STIMULI. PT OPENS HIS EYES WHEN NAME IS CALLED. PT CAME IN FOR LOW BLOOD PRESSURE. A/0X2-2. PT SINUS OJHN 46. R UPPER ARM CVC FOR HEMODIALYSIS. IV LH G8. VANCO GIVEN, PT ON 0.9 NSS @ 100ML/HR. PT KEPT CLEAN, DRY AND COMFORTABLE. SAFETY MEASURES RENDERED, BED IN LOWEST POS. LOCKED, WITH CALL LIGHT WITHIN REACH. ENDORSED TO FRICTION PAINT MACHINE TENDER RN.
--- NOTE | 2021-03-28 19:22 | NUR ---
RN NOTES RECEIVED PT MENTAL STATUS ALTERED. PT RESPONSIVE TO STERNUM RUB STIMULI. PT OPENS HIS E A/0X2-2. PT SINUS JOHN 46. R UPPER ARM CVC FOR HEMODIALYSIS. IV LH G 18. ON 0.9 NSS @ 100ML/HR. PT KEPT CLEAN, DRY AND COMFORTABLE AT THIS TIME. SAFETY MEASURES MAINTAINED, BED IN LOWEST POS. LOCKED, WITH CALL LIGHT WITHIN REACH. WILL CONTINUE TO MONITOR.
[2021-03-28] MEDS: GABAPENTIN 100 MG CAPSULE PO SCH (21:00)
[2021-03-28] MEDS: MEROPENEM 500 MG in IV NS 0.9% 50 ML IV SCH (21:48)
[2021-03-28] MEDS ORDERED: MEROPENEM 500 MG VIAL IV SCH (22:00)
[2021-03-28] MEDS: ATORVASTATIN 10 MG TABLET PO SCH (22:00)
[2021-03-28 22:29] VITALS: BP 80/29
--- NOTE | 2021-03-28 22:29 | NUR ---
RN NOTES CORRECTION AT THIS TIME PT HEART RATE IN 44 NOT 94 .WILL CONTINUE TO MONITOR.
[2021-03-29 00:33] VITALS: BP 103/57
--- NOTE | 2021-03-29 00:59 | NUR ---
RN NOTES PT TEMPERATURE LOW PT ROOM MADE WARM CHARGE NURSE MADE AWARE. CHARGE NURSE PROVIDED BEAR HUGGER BLANKET. PT ALSO IS A/0 X4 AT THIS TIME ASKING FOR FOOD SNACK PROVIDED. LINENS CHANGED. PTS HEART RATE IS NOW IN THE 60S. WILL CONTINUE TO MONITOR.
--- NOTE | 2021-03-29 02:37 | NUR ---
RN NOTES PTS TEMPERATURE RECHECK PT TEMP IS NOW 96.6. RECEIVED ORDERS FROM MACHINE SETTER AUTOMATIC DR TO PLACE PT ON AQ CHECKS AND A MODERATE SLIDING SCALE. ORDERS NOTED AND CARRIED OUT.
[2021-03-29] MEDS ORDERED: *INSULIN REGULAR(HUMULIN R)HUM 100 UNIT/ML VIAL SQ PRN (03:00)
[2021-03-29 05:05] VITALS: BP 101/48
--- NOTE | 2021-03-29 05:13 | NUR ---
RN NOTES PT TEMPERATURE RE CHECKED AT THIS TIME IT IS 97.4 HR HAS ALSO IMPROVED IT IS NOW 66. WILL CONTINUE TO MONITOR.
--- NOTE | 2021-03-29 06:39 | NUR ---
MS RN NOTES PT A/0X 3-4 PT IS FORGETFUL IV L WRIST G24 SALINE LOCKED PT KEPT CLEAN, DRY AND COMFORTABLE AT THIS TIME. SAFETY MEASURES MAINTAINED, BED IN LOWEST POS. LOCKED, WITH CALL LIGHT WITHIN REACH. PT HAS MAXWELL HUGGER BLANKET ON AT THIS TIME. HOB ELEVATED FOR SAFETY. BILATERAL SIDE RIALS UP. WILL ENDORSE CARE TO DAY SHIFT NURSE.
[2021-03-29] MEDS: ACETAMINOPHEN 325 MG TABLET PO PRN ×2 (06:51→19:05)
[2021-03-29] MEDS: BLOOD SUGAR DIAGNOSTIC 1 EACH STRIP VI SCH ×4 (07:56→21:27)
[2021-03-29] MEDS: FAMOTIDINE (20 MG) 20 MG TABLET PO SCH (07:59)
[2021-03-29 08:00] VITALS: BP 96/48
[2021-03-29] MEDS: LEVOTHYROXINE SODIUM 75 MCG TABLET PO SCH (08:00)
--- NOTE | 2021-03-29 08:00 | NUR ---
TELE NURSE OPENING NOTE RECEIVE REPORT FROM BED CONTROL SPECIALIST NURSE. PATIENT IS STABLE WITH VITAL SIGNS WITHIN NORMAL LIMITS. 0700 BLOOD SUGAR WAS 77. NO INSULIN WAS NEEDED. IV WAS PATENT AND FLUSH WELL. TAKE OFF WARMER BLANKET, PATENT STATE "ITS GETTING TOO WARM." PUT BED IN LOWEST POSITION WITH HEAD OF THE BED ELEVATED WITH 3 SIDE RAIL UP. PROVIDE COMFORT MEASURE. WILL CONTINUE TO MONITOR.
[2021-03-29 08:03] LABS: BASOPHILS % (AUTO) 0.3 % (0.0-2.0); EOSINOPHILS % (AUTO) 8.5 % (0.0-6.0); HEMATOCRIT 31 % (39-51); LYMPHOCYTES # (AUTO) 1.4 K/uL (0.8-4.8); LYMPHOCYTES % (AUTO) 11.1 % (20.0-44.0); MEAN CORPUSCULAR HGB CONC 32 g/dl (31.0-36.0); MEAN CORPUSCULAR VOLUME 91 fL (80-96); MONOCYTES # (AUTO) 1.7 K/uL (0.1-1.30); MONOCYTES % (AUTO) 12.9 % (2.0-12.0); NEUTROPHILS # (AUTO) 8.7 K/uL (1.8-8.9); NEUTROPHILS % (AUTO) 67.2 % (43.0-81.0); PLATELET COUNT (AUTO) 535 K/uL (150-450); RED BLOOD CELL COUNT(AUTO) 3.43 MIL/uL (4.5-6.0)
[2021-03-29 08:50] LABS: CALCIUM, SERUM 7.2 mg/dL (8.5-10.1); CREATININE 7.3 mg/dL (0.6-1.3); MAGNESIUM 2.8 mg/dL (1.8-2.4); PHOSPHORUS 6.8 mg/dL (2.5-4.9); POTASSIUM 4.4 mmol/L (3.5-5.1)
[2021-03-29] MEDS: INSULIN GLARGINE, 100 UNIT/ML CARTRIDGE SQ SCH (09:00)
[2021-03-29] MEDS: Z GUARD REMEDY 2 OZ OINT TP PRN (09:30)
[2021-03-29] MEDS: LORAZEPAM 1 MG TABLET PO PRN ×2 (09:30→23:14)
[2021-03-29] MEDS: LIOTHYRONINE SODIUM (5 MCG/TA 5 MCG TABLET PO SCH ×2 (09:31→16:32)
[2021-03-29] MEDS: GABAPENTIN 100 MG CAPSULE PO SCH ×2 (09:31→21:07)
[2021-03-29] MEDS: LamoTRIgine 25 MG TABLET PO SCH ×2 (09:32→16:32)
[2021-03-29] MEDS: ZINC SULFATE 220 MG CAPSULE PO SCH (09:32)
[2021-03-29] MEDS: N PO SCH (09:32)
[2021-03-29] MEDS: ACETAMINOPHEN 325 MG TABLET PO SCH (09:32)
[2021-03-29] MEDS: DIVALPROEX SODIUM 500 MG TABLET.DR PO SCH (09:32)
[2021-03-29] MEDS: MESALAMINE 400 MG CAP PO SCH ×3 (09:33→16:32)
[2021-03-29] MEDS: TRIAMCINOLONE ACETONIDE 0.1% CR 15 GM TUBE TP SCH (09:50)
--- NOTE | 2021-03-29 11:24 | NUR ---
EQUITIES ANALYST NOTE DUPLEX STUDY BOTH LEGS DONE, NO DVT PER TECH WILL F\U
--- NOTE | 2021-03-29 11:25 | NUR ---
TELE NURSE NOTE. ORDER WAS PUT IN FOR URINE CULTURE. PATIENT UNABLE TO URINATE TO PROVIDE SAMPLE AND DID NOT WANT REID CATHETER.
[2021-03-29 12:00] VITALS: BP 98/45
[2021-03-29] MEDS: INSULIN REGULAR, HUMAN 100 UNIT/ML 3 ML VIAL SQ PRN (12:33)
[2021-03-29] MEDS ORDERED: VANCOMYCIN HCL 1 GM IV SCH (13:00)
[2021-03-29] MEDS ORDERED: ALBUMIN 25% 25 GM in PREMIX 1 EA IV PRN ×2 (14:00→15:15)
[2021-03-29] MEDS ORDERED: EPOETIN ALFA-EPBX 4,000 UNIT/ML VIAL IV SCH (15:00)
--- NOTE | 2021-03-29 15:33 | NUR ---
TELE NURSE NOTE. EPOETIN SRIDHAR-EPBX 4000 UNIT/ML, ALBUMIN 25% GIVEN BY HEMODIALYSIS NURSE. BLOOD CULTURE OF HEMODIALYSIS CATH OBTAIN BY HEMODIALYSIS NURSE.
--- NOTE | 2021-03-29 15:38 | NUR ---
teletype technician note on hd at this time, consent for hd patient signed
[2021-03-29 16:00] VITALS: BP 100/63
[2021-03-29] MEDS ORDERED: VANCOMYCIN 500 MG in IV D5W 100 ML IV PRN (18:00)
--- NOTE | 2021-03-29 18:32 | NUR ---
TELE NURSE CLOSING NOTE. PATIENT MAINTAIN STABLE CONDITION THROUGHOUT SHIFT. PATIENT A/O X4. PATIENT GET ANXIOUS. PATIENT OXYGEN SATURATION IS 95% WITH NC AT 2L. MAINTAIN SINUS RHYTHM THROUGHOUT SHIFT. CHEST CT NON CON WAS DONE. ULTRASOUND OF LOWER EXTREMITY WAS DONE AND NO DVT PRESENTED. HD CATH CULTURE WAS OBTAIN BY DIALYSIS NURSE AND SENT TO LAB. DIALYSIS REMOVE 500ML. BP POST DIALYSIS IS 137/75. PATIENT IS STABLE POST DIALYSIS. WILL CONTINUE TO MONITOR. WILL GIVE REPORT TO ON COMING NURSE.
--- NOTE | 2021-03-29 18:43 | NUR ---
BRANCH LENDING OFFICER NOTE HD COMPLETED 500 M L OF FLUIDS REMOVED
--- NOTE | 2021-03-29 19:15 | NUR ---
FABRIC INSPECTOR OPENINGN NOTE PT IN BED, EASILY AROUSABLE, A/OX4, ABLE TO VERBALIZE NEEDS. PT STATES, "I HAVE NO PAIN RIGHT NOW.". RESPIRATIONS EVEN AND UNLABORED. IV SITE L-ARM INTACT/PATENT/FLUSHES WELL. CONNECTED TO TELE MONITOR WITH SR, HR 85. PT IN NO ACUTE DISTRESS. SAFETY MEASURES IN PLACE, BED IN LOWEST LOCKED POSITION, S/R UPX2, CALL LIGHT IN REACH. WILL CONT TO MONITOR.
[2021-03-29 20:00] VITALS: BP 106/60
[2021-03-29] MEDS: ATORVASTATIN 10 MG TABLET PO SCH (21:07)
[2021-03-29] MEDS: MEROPENEM 500 MG in IV NS 0.9% 50 ML IV SCH (21:09)
--- NOTE | 2021-03-29 21:28 | NUR ---
BS 109
--- NOTE | 2021-03-29 23:15 | NUR ---
RN NOTE PT C/O FEELING ANXIOUS AND REQUESTS ATIVAN. GIVEN ATIVAN 1MG PO ORDERED. REPOSITIONED FOR COMFORT IN BED.
[2021-03-30] VITALS: BP 113/63
[2021-03-30 04:00] VITALS: BP 110/60
[2021-03-30 06:43] LABS: BASOPHILS # (AUTO) 0.1 K/uL (0.0-0.2); BASOPHILS % (AUTO) 0.5 % (0.0-2.0); EOSINOPHILS % (AUTO) 10.6 % (0.0-6.0); HEMATOCRIT 28 % (39-51); LYMPHOCYTES # (AUTO) 1.8 K/uL (0.8-4.8); LYMPHOCYTES % (AUTO) 14.2 % (20.0-44.0); MEAN CORPUSCULAR HGB CONC 32 g/dl (31.0-36.0); MEAN CORPUSCULAR VOLUME 91 fL (80-96); MONOCYTES # (AUTO) 2.3 K/uL (0.1-1.30); MONOCYTES % (AUTO) 18.1 % (2.0-12.0); NEUTROPHILS # (AUTO) 7.1 K/uL (1.8-8.9); NEUTROPHILS % (AUTO) 56.6 % (43.0-81.0); PLATELET COUNT (AUTO) 480 K/uL (150-450); WHITE BLOOD COUNT (AUTO) 12.6 K/uL (4.3-11.0)
--- NOTE | 2021-03-30 06:50 | NUR ---
PAINT FACTORY WORKER CLOSING NOTE PT IN BED, AWAKE, A/OX4, ABLE TO VERBALIZE NEEDS. NO C/O PAIN AT THIS TIME. DENIES SOB. IV SITE L-ARM INTACT/PATENT/FLUSHES WELL. TELE MONITOR WITH SR, HR 81. NO ACUTE EVENTS DURING THE NIGHT. ALL NEEDS ATTENDED TO. SAFETY MEASURES MAINTAINED. BED IN LOWEST LOCKED POSITION, S/R UPX2, CALL LIGHT IN REACH.
--- NOTE | 2021-03-30 06:58 | NUR ---
BS 123
[2021-03-30] MEDS: BLOOD SUGAR DIAGNOSTIC 1 EACH STRIP VI SCH ×4 (06:59→22:32)
[2021-03-30] MEDS: LEVOTHYROXINE SODIUM 75 MCG TABLET PO SCH (07:02)
[2021-03-30] MEDS: FAMOTIDINE (20 MG) 20 MG TABLET PO SCH (07:02)
[2021-03-30] MEDS: LORAZEPAM 1 MG TABLET PO PRN ×2 (07:09→19:48)
[2021-03-30 07:17] LABS: CALCIUM, SERUM 7.4 mg/dL (8.5-10.1); CREATININE 4.5 mg/dL (0.6-1.3); POTASSIUM 4.1 mmol/L (3.5-5.1)
--- NOTE | 2021-03-30 07:59 | NUR ---
TELE NURSE OPENING NOTE. PATIENT A/O X4. ABLE TO COMMUNICATE NEEDS AND CONCERNS. PATIENT IS STABLE WITH NO SIGN OF DISTRESS. IV FLUSH WELL. BED IN LOWEST POSITION, LOCK, WITH 3 SIDE RAIL UP. HEAD OF THE BED ELEVATED. APPROPRIATE ISOLATION PRECAUTION IN PLACE. WILL CONTINUE TO MONITOR.
[2021-03-30 08:00] VITALS: BP 137/72
[2021-03-30] MEDS: MESALAMINE 400 MG CAP PO SCH ×3 (08:53→16:39)
[2021-03-30] MEDS: DIVALPROEX SODIUM 500 MG TABLET.DR PO SCH (08:54)
[2021-03-30] MEDS: LIOTHYRONINE SODIUM (5 MCG/TA 5 MCG TABLET PO SCH ×2 (08:54→16:39)
[2021-03-30] MEDS: ACETAMINOPHEN 325 MG TABLET PO SCH (08:54)
[2021-03-30] MEDS: GABAPENTIN 100 MG CAPSULE PO SCH ×2 (08:54→22:02)
[2021-03-30] MEDS: N PO SCH (08:54)
[2021-03-30] MEDS: ZINC SULFATE 220 MG CAPSULE PO SCH (08:54)
[2021-03-30] MEDS: LamoTRIgine 25 MG TABLET PO SCH ×2 (08:55→16:39)
[2021-03-30] MEDS: Z GUARD REMEDY 2 OZ OINT TP PRN (08:56)
[2021-03-30] MEDS: TRIAMCINOLONE ACETONIDE 0.1% CR 15 GM TUBE TP SCH (08:57)
[2021-03-30] MEDS: INSULIN GLARGINE, 100 UNIT/ML CARTRIDGE SQ SCH (09:19)
[2021-03-30] MEDS: INSULIN REGULAR, HUMAN 100 UNIT/ML 3 ML VIAL SQ PRN ×2 (09:21→12:21)
[2021-03-30 09:47] LABS: EOSINOPHILS % (MANUAL) 14 % (0-4); LYMPHOCYTES % (MANUAL) 12 % (16-48); MONOCYTES % (MANUAL) 14 % (0-11.0); MYELOCYTES % 1 % (0-0); NEUTROPHILS % (MANUAL) 59 (42-76)
--- NOTE | 2021-03-30 10:04 | NUR ---
WOUND CARE CONSULT: REVIEWED CHART,NURSING DOCUMENTATION AND PHOTO WHICH INDICATES UNSTAGEABLE SACRAL WOUND, PRESENT ON ADMISSION. DR BLANCO NOTIFIED OF SURGICAL CONSULT REQUEST. RECOMMENDATIONS MADE FOR SKIN PROTECTION. DISCUSSED WITH NURSING STAFF. FIRST STEP LOW AIRLOSS MATTRESS IS ON ORDER. MD IN AGREEMENT WITH PLAN OF CARE.
--- NOTE | 2021-03-30 11:27 | NUR ---
telephoto engineer note round made , all needs attended , not in distress ,call light within reach
[2021-03-30 12:00] VITALS: BP 113/60
--- NOTE | 2021-03-30 14:57 | NUR ---
RESOURCE ROOM SPECIAL EDUCATION TEACHER NOTE ON HD AT THIS TIME ,NOT IN DISTRESS
--- NOTE | 2021-03-30 14:58 | NUR ---
INHALATION THERAPY AIDE NOTE CONSENT FOR SERIAL DEBRIDEMENT ON SACRAL DONE ORDERED
[2021-03-30 16:00] VITALS: BP 114/62
[2021-03-30] MEDS: THERAHONEY GEL 1.5 OZ TUBE TP SCH (16:02)
--- NOTE | 2021-03-30 17:16 | NUR ---
telegraph and teletype operator note on hd at this time blood sugar 60 mg\ dl apple juice and crackers given will f\u
--- NOTE | 2021-03-30 18:27 | NUR ---
telephone betting clerk note blood sugar 193 mg\ dl ,rosanai pancho applied
--- NOTE | 2021-03-30 18:51 | NUR ---
TELE NURSE CLOSING NOTE. PATIENT A/O X3. FORGETFUL AT TIME. SINUS RHYTHM. B. ARM EDEMA. SACRAL WOUND DRESSING WAS CHANGED. HEMODIALYSIS WAS DONE. 880CC WAS REMOVED BY DIALYSIS NURSE. BLOOD SUGAR CAME DOWN TO 60. PROVIDE APPLE JUICE AND GRAM CRACKER. BLOOD SUGAR CAME UP TO 193. PATIENT REMAIN STABLE. COMFORT MEASURE WAS PROVIDED. SAFETY MEASURE IN PLACE. WILL CONTINUE TO MONITOR. REPORT WAS GIVEN TO BHASKAR.
[2021-03-30] MEDS: SENNOSIDES 8.6 MG TABLET PO PRN (19:48)
[2021-03-30 20:00] VITALS: BP 135/95
--- NOTE | 2021-03-30 20:00 | NUR ---
RN NOTES RECEIVED PATIENT IN BED, AWAKE, ALERT AND VERBALLY RESPONSIVE. AOX3. ABLE TO MAKE NEEDS KNOWN. BREATHING EVEN AND UNLABORED. NO SOB/COUGH/CONGESTION NOTED AT THIS TIME. PATIENT CURRENTLY ON OXYGEN VIA NASAL CANULA @ 2 L/MIN WITH SATURATION OF 99 PERCENT. HOB ELEVATED 35 DEGREES. SKIN IS WARM AND DRY TO TOUCH. NOTED WITH BILATERAL UPPER EXTREMITY EDEMA. AFEBRILE. BOWEL SOFT AND NON-TENDER. NOTED WITH RIGHT UPPER CHEST HD ACCESS. NOTED WITH RIGHT UPPER ARM MIDLINE, PATENT AND INTACT. PATIENT GIVEN ATIVAN 1 MG SECONDARY TO VERBALIZATION OF NERVOUSNESS. OFFERED EXTRA BLANKET FOR COMFORT. ASSISTED WITH TURNING AND REPOSITIONING. NEEDS ATTENDED. CALL LIGHT WITHIN REACH.
[2021-03-30] MEDS: ATORVASTATIN 10 MG TABLET PO SCH (22:02)
[2021-03-30] MEDS: MEROPENEM 500 MG in IV NS 0.9% 50 ML IV SCH (22:03)
[2021-03-30] MEDS: ZOLPIDEM TARTRATE 5 MG TABLET PO PRN (22:21)
[2021-03-30] MEDS: DEXTROSE 50%-WATER 50 ML DISP.SYRIN IV PRN (22:33)
--- NOTE | 2021-03-30 22:43 | NUR ---
RN NOTES PATIENT NOTED WITH BS OF 32. ADMINISTERED 50% DEXTROSE INJECTION PER PROTOCOL, GAVE 1 CAN OF ORANGE JUICE. MD NOTIFIED. PATIENT AWAKE, AND VERBALLY RESPONSIVE. WILL CONTINUE TO MONITOR.
--- NOTE | 2021-03-30 23:13 | NUR ---
RN NOTES BLOOD GLUCOSE CHECKED VIA FINGER STICK WITH RESULT OF 108. PATIENT AWAKE, ALERT, AND VERBALLY RESPONSIVE. WILL CONTINUE TO MONITOR.
[2021-03-31] VITALS (7 sets, daily range): BP systolic 108–145; BP diastolic 65–93
--- NOTE | 2021-03-31 06:30 | NUR ---
RN NOTES NO SIGNIFICANT CHANGES DURING SHIFT. PATIENT IN BED, SLEEPING, AROUSABLE. BREATHING EVEN AND UNLABORED. NO SOB/CONGESTION. NOTED. CURRENTLY ON OXYGEN VIA NC AT 2L/MIN. TOLERATING WELL. NO EPISODE OF DESATURATION. SKIN WARM AND DRY TO TOUCH. AFEBRILE. NO BLEEDING NOTED. PATIENT WITH EPISODE OF HYPOGLYCEMIA. PROTOCOL INTERVENTIONS RENDERED. PATIENT RESPONDED WELL AND BS INCREASED TO 108. ASSISTED WITH ADL'S, KEPT CLEAN AND DRY. CALL LIGHT WITHIN REACH. WILL ENDORSE ACCORDINGLY TO NEXT SHIFT FOR CONTINUITY OF CARE.
[2021-03-31 06:35] LABS: BASOPHILS # (AUTO) 0.1 K/uL (0.0-0.2); BASOPHILS % (AUTO) 0.8 % (0.0-2.0); EOSINOPHILS % (AUTO) 2.1 % (0.0-6.0); HEMATOCRIT 27 % (39-51); HEMOGLOBIN 8.6 g/dL (13.5-17.5); LYMPHOCYTES # (AUTO) 1.8 K/uL (0.8-4.8); LYMPHOCYTES % (AUTO) 14.1 % (20.0-44.0); MEAN CORPUSCULAR HGB CONC 32 g/dl (31.0-36.0); MEAN CORPUSCULAR VOLUME 91 fL (80-96); MONOCYTES # (AUTO) 2.5 K/uL (0.1-1.30); MONOCYTES % (AUTO) 19.4 % (2.0-12.0); NEUTROPHILS # (AUTO) 8.1 K/uL (1.8-8.9); NEUTROPHILS % (AUTO) 63.6 % (43.0-81.0); PLATELET COUNT (AUTO) 405 K/uL (150-450); RED BLOOD CELL COUNT(AUTO) 2.93 MIL/uL (4.5-6.0); WHITE BLOOD COUNT (AUTO) 12.8 K/uL (4.3-11.0)
[2021-03-31 06:39] LABS: CALCIUM, SERUM 6.6 mg/dL (8.5-10.1); POTASSIUM 3.8 mmol/L (3.5-5.1)
[2021-03-31] MEDS: DEXTROSE 50%-WATER 50 ML DISP.SYRIN IV PRN (06:49)
--- NOTE | 2021-03-31 07:29 | NUR ---
RN NOTES BS RE CHECK = 118 MG/DL. NO INSULIN COVERAGE GIVEN
[2021-03-31] MEDS ORDERED: IV 10% DEXTROSE 1,000 ML IV PRN (07:30)
--- NOTE | 2021-03-31 07:30 | NUR ---
RN OPENING NOTES RECEIVED PT AWAKE AND ORIENTED. PATIENT IN BED AND AROUSABLE. BREATHING NO SIGNS OF DISTRESS OR SOB/CONGESTION. CURRENTLY ON OXYGEN VIA NC AT 2L/MIN. TOLERATING WELL.. SKIN WARM AND DRY TO TOUCH. PATIENT WITH EPISODE OF HYPOGLYCEMIA. PROTOCOL INTERVENTIONS RENDERED. PATIENT RESPONDED WELL AND BS INCREASED TO 108. RECHECKED BLOOD SUGAR AND INCREASED 118 @0730 ASSISTED WITH ADL'S, KEPT CLEAN AND DRY. CALL LIGHT WITHIN REACH, AND PROMOTING SAFETY MEASURES
[2021-03-31] MEDS: BLOOD SUGAR DIAGNOSTIC 1 EACH STRIP VI SCH ×4 (07:36→23:18)
[2021-03-31] MEDS: GABAPENTIN 100 MG CAPSULE PO SCH ×2 (08:26→21:48)
[2021-03-31] MEDS: MESALAMINE 400 MG CAP PO SCH ×3 (08:27→17:33)
[2021-03-31] MEDS: LIOTHYRONINE SODIUM (5 MCG/TA 5 MCG TABLET PO SCH ×2 (08:27→17:32)
[2021-03-31] MEDS: ZINC SULFATE 220 MG CAPSULE PO SCH (08:27)
[2021-03-31] MEDS: LamoTRIgine 25 MG TABLET PO SCH ×2 (08:28→17:31)
[2021-03-31] MEDS: ACETAMINOPHEN 325 MG TABLET PO SCH ×2 (08:29→17:32)
[2021-03-31] MEDS: N PO SCH (08:29)
[2021-03-31] MEDS: FAMOTIDINE (20 MG) 20 MG TABLET PO SCH (08:30)
[2021-03-31] MEDS: LEVOTHYROXINE SODIUM 75 MCG TABLET PO SCH (08:30)
[2021-03-31] MEDS: DIVALPROEX SODIUM 500 MG TABLET.DR PO SCH (08:36)
[2021-03-31] MEDS: THERAHONEY GEL 1.5 OZ TUBE TP SCH (08:38)
[2021-03-31] MEDS: TRIAMCINOLONE ACETONIDE 0.1% CR 15 GM TUBE TP SCH (08:38)
[2021-03-31] MEDS: INSULIN GLARGINE, 100 UNIT/ML CARTRIDGE SQ SCH (08:39)
--- NOTE | 2021-03-31 09:30 | NUR ---
RN NOTES DUE MEDS GIVEN.
[2021-03-31] MEDS: INSULIN REGULAR, HUMAN 100 UNIT/ML 3 ML VIAL SQ PRN (11:34)
[2021-03-31] MEDS ORDERED: NA PHOS,M-B/NA PHOS,DI-BA 1 EA ENEMA RC ONE (15:00)
[2021-03-31] MEDS: LORAZEPAM 1 MG TABLET PO PRN ×2 (16:15→21:49)
--- NOTE | 2021-03-31 18:30 | NUR ---
RN CLOSING NOTES PT A0X4. PATIENT IN BED, CURRENTLY COMPLAINING OF EAR PAIN TYLENOL WAS GIVEN BUT PT INSISTS CONTINUITY OF PAIN. PT IS REQUESTING MORPHINE. NO SIGNS OF DISTRESS OR SOB/CONGESTION. CURRENTLY ON OXYGEN VIA NC AT 2L/MIN. SKIN WARM AND DRY TO TOUCH. 1830 GLUCOSE 121. NO INSULIN GIVEN DUE TO PROTOCOL. KEPT CLEAN AND DRY. CALL LIGHT WITHIN REACH, AND PROMOTING SAFETY MEASURES. WILL ENDORSED TO PLATE SHOP HELPER
[2021-03-31] MEDS: ATORVASTATIN 10 MG TABLET PO SCH (21:50)
[2021-03-31] MEDS: MEROPENEM 500 MG in IV NS 0.9% 50 ML IV SCH (21:50)
[2021-04-01] VITALS: BP 145/84
[2021-04-01 04:00] VITALS: BP 118/69
[2021-04-01] MEDS: ACETAMINOPHEN 325 MG TABLET PO SCH (05:51)
--- NOTE | 2021-04-01 06:44 | NUR ---
RN notes Resting comfortably in bed, awake, alert and oriented. Verbally able to express needs. Complaint of pain. Tylenol given with relief. Requested for sleeping pill, ambien given with help. Noted with anxiousness, gave ativan x 1 with help. No distress noted. Breathing even and unlabored. Kept clean and dry. Will endorse to next shift for continuity of care.
[2021-04-01 06:56] LABS: BASOPHILS # (AUTO) 0.1 K/uL (0.0-0.2); BASOPHILS % (AUTO) 0.7 % (0.0-2.0); HEMATOCRIT 25 % (39-51); HEMOGLOBIN 8.1 g/dL (13.5-17.5); LYMPHOCYTES # (AUTO) 1.8 K/uL (0.8-4.8); LYMPHOCYTES % (AUTO) 12.4 % (20.0-44.0); MEAN CORPUSCULAR HGB CONC 33 g/dl (31.0-36.0); MEAN CORPUSCULAR VOLUME 90 fL (80-96); MONOCYTES # (AUTO) 2.4 K/uL (0.1-1.30); MONOCYTES % (AUTO) 16.5 % (2.0-12.0); NEUTROPHILS % (AUTO) 62.4 % (43.0-81.0); PLATELET COUNT (AUTO) 387 K/uL (150-450); RED BLOOD CELL COUNT(AUTO) 2.78 MIL/uL (4.5-6.0); WHITE BLOOD COUNT (AUTO) 14.4 K/uL (4.3-11.0)
[2021-04-01 07:47] LABS: CALCIUM, SERUM 7.1 mg/dL (8.5-10.1); CREATININE 4.7 mg/dL (0.6-1.3); POTASSIUM 4.5 mmol/L (3.5-5.1)
[2021-04-01 08:00] VITALS: BP 111/68
--- NOTE | 2021-04-01 08:00 | NUR ---
BIOFUELS TECHNOLOGY MANAGER NOTE PATIENT IN BED , ALERT ORIENTED , ON 2L NC NO SOB NOTED AT THIS TIME, ON TELEMONITOR SR , RT HAND HL INTACT AND FLUSHED WELL , BED IN LOWEST AND LOCKED POSITION , CALL LIGHT WITHIN REACH
[2021-04-01] MEDS: GABAPENTIN 100 MG CAPSULE PO SCH ×2 (08:37→21:05)
[2021-04-01] MEDS: ZINC SULFATE 220 MG CAPSULE PO SCH (08:37)
[2021-04-01] MEDS: N PO SCH (08:37)
[2021-04-01] MEDS: DIVALPROEX SODIUM 500 MG TABLET.DR PO SCH (08:38)
[2021-04-01] MEDS: LamoTRIgine 25 MG TABLET PO SCH ×2 (08:38→16:15)
[2021-04-01] MEDS: LIOTHYRONINE SODIUM (5 MCG/TA 5 MCG TABLET PO SCH ×2 (08:38→16:15)
[2021-04-01] MEDS: MESALAMINE 400 MG CAP PO SCH ×3 (08:38→16:15)
[2021-04-01] MEDS: INSULIN GLARGINE, 100 UNIT/ML CARTRIDGE SQ SCH (08:39)
[2021-04-01] MEDS: THERAHONEY GEL 1.5 OZ TUBE TP SCH (08:41)
[2021-04-01] MEDS: LORAZEPAM 1 MG TABLET PO PRN ×2 (08:59→17:04)
[2021-04-01] MEDS: LEVOTHYROXINE SODIUM 75 MCG TABLET PO SCH (09:35)
[2021-04-01] MEDS: FAMOTIDINE (20 MG) 20 MG TABLET PO SCH (09:35)
[2021-04-01] MEDS: BLOOD SUGAR DIAGNOSTIC 1 EACH STRIP VI SCH ×4 (09:38→21:05)
[2021-04-01] MEDS: TRIAMCINOLONE ACETONIDE 0.1% CR 15 GM TUBE TP SCH (09:38)
--- NOTE | 2021-04-01 11:14 | NUR ---
AIR GRINDER NOTES Called facility [facility] to give report, spoke Luli HAGER and gave report regarding patient current condition and medications.
--- NOTE | 2021-04-01 11:54 | NUR ---
CONSUMER SCIENCE TEACHER NOTES Covid swab test done and bring to laboratory will continue to monitor
[2021-04-01 12:00] VITALS: BP 106/64
--- NOTE | 2021-04-01 12:21 | NUR ---
telegraph installer note blood sugar 152 mg\ dl ,will hold coverage with insulin at this time ,blood sugar was earlier 72mg\dl, will monitor
[2021-04-01] MEDS: SENNOSIDES 8.6 MG TABLET PO PRN (14:34)
--- NOTE | 2021-04-01 14:43 | NUR ---
TURKISH LINE ATTENDANT NOTES Patient is not to be discharge today due to patient appealing,manager corporate responsibility notified ststed that she will look foe another facility and she will inform the doctor
[2021-04-01 16:00] VITALS: BP 131/71
--- NOTE | 2021-04-01 18:40 | NUR ---
MULTIMEDIA PRODUCER NOTE RESTING COMFORTABLY AFTER ATIVAN WAS GIVEN , ALL NEEDS ATTENDED, NOT IN DISTRESS
[2021-04-01 20:00] VITALS: BP 132/75
--- NOTE | 2021-04-01 20:00 | NUR ---
Patient awake, alert and oriented x4. cooperative. Denies pain or discomfort. All needs met. safety measures in place. HD cath to R chest wall intact.
[2021-04-01] MEDS: MEROPENEM 500 MG in IV NS 0.9% 50 ML IV SCH (21:05)
[2021-04-01] MEDS: ATORVASTATIN 10 MG TABLET PO SCH (21:05)
--- NOTE | 2021-04-01 22:00 | NUR ---
Patient's BS 128. 1 apple juice and 1 pudding given per patient request. will recheck bs in AM.
[2021-04-01] MEDS: ZOLPIDEM TARTRATE 5 MG TABLET PO PRN (22:16)
[2021-04-02] VITALS: BP 141/89
[2021-04-02 04:00] VITALS: BP 165/90
[2021-04-02] MEDS: ACETAMINOPHEN 325 MG TABLET PO PRN (04:14)
--- NOTE | 2021-04-02 04:23 | NUR ---
Patient temperature slightly elevated 99.3, B/P elevated 165/90. Patient complained of mild discomfort. PRN tylenol given and patient repositioned.
--- NOTE | 2021-04-02 06:50 | NUR ---
PACKAGING TECH CLOSING NOTES Patient is A&Ox3. Slept well throughout the night with administration of PRN Ambien. wound care done and picture taken of sacral wound. Patient appears anxious at times about placement at SNF but resolves when he is reminded case management is working on it. VSS throughout night. SR on monitor.
--- NOTE | 2021-04-02 07:16 | NUR ---
no hypo or hyperglycemic reactions overnight.
[2021-04-02] MEDS: BLOOD SUGAR DIAGNOSTIC 1 EACH STRIP VI SCH ×4 (07:33→21:24)
--- NOTE | 2021-04-02 07:37 | NUR ---
OPENING NOTES RECEIVED PT SLEEPING. PT A/OX3, NO SOB NOTED, 0 DISTRESS NOTED. PT ON 3L NC, SAT AT 98%. RH #22 ACCESS NOTED, PATENT W/ NO SIGNS OF INFILTRATION. PT CAN TURN IN BED INDEPENDENTLY. ALL SAFETY MEASURES RENDERED, BED IN LOWEST POSITION, LOCKED, WITH CALL LIGHT WITHIN REACH. WILL CONTINUE TO MONITOR.
[2021-04-02 08:00] VITALS: BP 119/69
[2021-04-02] MEDS: LIOTHYRONINE SODIUM (5 MCG/TA 5 MCG TABLET PO SCH ×2 (08:07→16:33)
[2021-04-02] MEDS: ACETAMINOPHEN 325 MG TABLET PO SCH (08:07)
[2021-04-02] MEDS: MESALAMINE 400 MG CAP PO SCH ×3 (08:07→16:34)
[2021-04-02] MEDS: LEVOTHYROXINE SODIUM 75 MCG TABLET PO SCH (08:08)
[2021-04-02] MEDS: DIVALPROEX SODIUM 500 MG TABLET.DR PO SCH (08:08)
[2021-04-02] MEDS: ZINC SULFATE 220 MG CAPSULE PO SCH (08:08)
[2021-04-02] MEDS: LamoTRIgine 25 MG TABLET PO SCH ×2 (08:08→16:33)
[2021-04-02] MEDS: GABAPENTIN 100 MG CAPSULE PO SCH ×2 (08:08→21:26)
[2021-04-02] MEDS: FAMOTIDINE (20 MG) 20 MG TABLET PO SCH (08:08)
[2021-04-02] MEDS: THERAHONEY GEL 1.5 OZ TUBE TP SCH (08:09)
[2021-04-02] MEDS: Z GUARD REMEDY 2 OZ OINT TP PRN (08:10)
[2021-04-02] MEDS: INSULIN GLARGINE, 100 UNIT/ML CARTRIDGE SQ SCH (08:11)
[2021-04-02] MEDS: N PO SCH (08:13)
[2021-04-02] MEDS: TRIAMCINOLONE ACETONIDE 0.1% CR 15 GM TUBE TP SCH (08:14)
[2021-04-02] MEDS: NEPRO VAN 237 ML CAN PO SCH (09:59)
[2021-04-02] MEDS: LORAZEPAM 1 MG TABLET PO PRN ×2 (11:07→19:47)
--- NOTE | 2021-04-02 11:07 | NUR ---
RN NOTES; B/S TAKEN. RESULT 110. NO INSULIN NEEDED
[2021-04-02 12:00] VITALS: BP 147/75
[2021-04-02 16:00] VITALS: BP 176/96
[2021-04-02] MEDS: INSULIN REGULAR, HUMAN 100 UNIT/ML 3 ML VIAL SQ PRN (16:45)
--- NOTE | 2021-04-02 18:32 | NUR ---
RN CLOSING NOTES; PT TO BE D/C TO [facility] [phone]. ATTEMPTED TO CALL SNF SEVERAL TIMES, BUT NO ANSWER. D/C INSTRUCTIONS GIVEN, PT STATES UNDERSTANDING. ALL PAPER WORK SIGNED. PT IN STABLE CONDITION.
[2021-04-02 20:00] VITALS: BP 167/99
[2021-04-02] MEDS ORDERED: CLONIDINE HCL 0.1 MG TABLET PO ONE (20:30)
[2021-04-02] MEDS: MEROPENEM 500 MG in IV NS 0.9% 50 ML IV SCH (21:17)
[2021-04-02] MEDS: ATORVASTATIN 10 MG TABLET PO SCH (21:26)
[2021-04-03] VITALS: BP 152/95
[2021-04-03 04:00] VITALS: BP 144/87
--- NOTE | 2021-04-03 06:09 | NUR ---
19:20 gave report to Inder the Charge Nurse D/T the receiving nurse was daylin COLLINS finishes at 19:30 2000 liters removed Blood Pressure elevated 165/97 theambulance is here to take him to [facility] When I spoke to Wilton about the elevated blood pressure she said sent tomorrow when the B/P is down if I would Call placed to Rea MANNING and she said to give a Clonidine 0.1 mg and he can stay over night. bp went down 140's thru the night slept well No SOB watching TV
--- NOTE | 2021-04-03 07:17 | NUR ---
DOUBLE END TENONER OPERATOR OPENING NOTES Patient is asleep, arousable to stimuli, on 3 liters via NC, satting well. No respiratory distress, no SOB. Telereading sinus rhythm. Safety precautions implemented, bed locked in lowest position, call light within reach.
[2021-04-03 08:00] VITALS: BP 160/80
[2021-04-03] MEDS: LamoTRIgine 25 MG TABLET PO SCH (08:28)
[2021-04-03 08:29] VITALS: BP 160/80
[2021-04-03] MEDS ORDERED: hydrALAZINE HCL IV 20 MG VIAL IV PRN (08:30)
[2021-04-03] MEDS: LIOTHYRONINE SODIUM (5 MCG/TA 5 MCG TABLET PO SCH (08:30)
[2021-04-03] MEDS: ACETAMINOPHEN 325 MG TABLET PO SCH (08:31)
[2021-04-03] MEDS: FAMOTIDINE (20 MG) 20 MG TABLET PO SCH (08:31)
[2021-04-03] MEDS: MESALAMINE 400 MG CAP PO SCH (08:32)
[2021-04-03] MEDS: N PO SCH (08:33)
[2021-04-03] MEDS: LEVOTHYROXINE SODIUM 75 MCG TABLET PO SCH (08:33)
[2021-04-03] MEDS: DIVALPROEX SODIUM 500 MG TABLET.DR PO SCH (08:33)
[2021-04-03] MEDS: NEPRO VAN 237 ML CAN PO SCH (08:34)
[2021-04-03] MEDS: BLOOD SUGAR DIAGNOSTIC 1 EACH STRIP VI SCH (08:34)
[2021-04-03] MEDS: ZINC SULFATE 220 MG CAPSULE PO SCH (08:34)
[2021-04-03] MEDS: GABAPENTIN 100 MG CAPSULE PO SCH (08:34)
[2021-04-03] MEDS: TRIAMCINOLONE ACETONIDE 0.1% CR 15 GM TUBE TP SCH (08:35)
[2021-04-03] MEDS: THERAHONEY GEL 1.5 OZ TUBE TP SCH (08:36)
[2021-04-03] MEDS: INSULIN REGULAR, HUMAN 100 UNIT/ML 3 ML VIAL SQ PRN (08:49)
[2021-04-03] MEDS: INSULIN GLARGINE, 100 UNIT/ML CARTRIDGE SQ SCH (08:52)
[2021-04-03] MEDS ORDERED: CARVEDILOL 6.25 MG TABLET PO SCH (09:00)
[2021-04-03] MEDS: LORAZEPAM 1 MG TABLET PO PRN (09:07)
--- NOTE | 2021-04-03 10:30 | NUR ---
RN D/C NOTE Patient is A/O X 4, on 3 liters via NC, no respiratory distress, no SOB. D/C papers explained and signed, Inventory list completed. Picked up by medical transportation via [place] with [facility] EMT's. Gave report to donato davalos c/o Stefania. Left in stable condition.
== END 2021-04-03 10:56 | DRG 264 ==
LOC: ER 12:13 → TELE1 14:39 → MEDSG1 04-03 08:54
PROVIDERS: ADMIT Family Medicine
PROC: 5A1D70Z Performance of Urinary Filtration, Intermittent, Less than 6 Hours Per Day (ICD-10-PCS; 2021-03-29)
PROC: 0JB70ZZ Excision of Back Subcutaneous Tissue and Fascia, Open Approach (ICD-10-PCS; principal; 2021-04-02)
DX: T80.211A Bloodstream infection due to central venous catheter, initial encounter (principal); L89.153 Pressure ulcer of sacral region, stage 3; N18.6 End stage renal disease; E43 Unspecified severe protein-calorie malnutrition; I12.0 Hypertensive chronic kidney disease with stage 5 chronic kidney disease or end stage renal disease; Z68.1 Body mass index [BMI] 19.9 or less, adult; J96.11 Chronic respiratory failure with hypoxia; J90 Pleural effusion, not elsewhere classified; K51.90 Ulcerative colitis, unspecified, without complications; I95.3 Hypotension of hemodialysis; E11.22 Type 2 diabetes mellitus with diabetic chronic kidney disease; Z99.2 Dependence on renal dialysis; Z79.4 Long term (current) use of insulin; Z20.822 Contact with and (suspected) exposure to COVID-19; E11.40 Type 2 diabetes mellitus with diabetic neuropathy, unspecified; Z86.711 Personal history of pulmonary embolism; Z87.891 Personal history of nicotine dependence; Z79.899 Other long term (current) drug therapy; Z79.51 Long term (current) use of inhaled steroids; Z79.01 Long term (current) use of anticoagulants; D63.1 Anemia in chronic kidney disease; E03.9 Hypothyroidism, unspecified; E78.5 Hyperlipidemia, unspecified; E83.51 Hypocalcemia; M89.9 Disorder of bone, unspecified; Z66 Do not resuscitate; F31.9 Bipolar disorder, unspecified; J84.10 Pulmonary fibrosis, unspecified; D72.829 Elevated white blood cell count, unspecified
CPT/HCPCS: 36415; 71045-TC; 71250-TC; 74018; 80048-TC; 80061-TC; 80076-TC; 80202-TC; 82962-TC; 83605-TC; 83735-TC; 84100-TC; 84484-TC; 85025-TC; 85730-TC; 87040-TC; 87081-TC; 90935-TC; 93970-TC; A4216; A6253; G0378; J0885; J1815; J2185; J3370; J3490; J7030; J7050; J7060; P9047; U0003

== ENCOUNTER 2021-04-13 22:42 | Inpatient (IN) | payer MEDICARE, OTHER ==
[~2021-04-13] VITALS: Ht 172.7 cm; Wt 51.9 kg
[~2021-04-13 22:42] MED LIST changes: +CICL6.6S5 TP; -EPOE40007 IV; +LORA-259 PO; +MULT-447 PO; -PETR113O TP; +TRIA15OI2 TP; +ZINC1CAP3 PO
--- NOTE | 2021-04-13 22:45 | NUR ---
PT MANDI Burt FROM [facility] C/O LOW O2 STAT AT 75% ON 2LPM VIA N/C, PLACED ON 15L NRB SAT TO 98%. PT OPENS EYES TO NAME. CONNECTED PT TO TELE MONITOR AND POX. SAFETY MEASURES IN PLACE
--- NOTE | 2021-04-13 22:46 | NUR ---
PT'S POLST: DNR. PER PARAMEDICS: PT HAD 90 MINUTES OF DIALYSIS. DIALYSIS CATH TO R UPPER CHEST WALL; C/D/I.
--- NOTE | 2021-04-13 22:50 | NUR ---
RT AT BEDSIDE. TITRATED O2 TO SIMPLE MASK 8LPM; TOLERATING AT 98%.
--- NOTE | 2021-04-13 23:05 | NUR ---
BLOODWORK DRAWN AND GIVEN TO BOOM TENDER. INITIATED R FOREARM #20G; PATENT AND INTACT.
[2021-04-13 23:24] LABS: CALCIUM, SERUM 8.2 mg/dL (8.5-10.1); CARBON DIOXIDE 31 mmol/L (21-32); CHLORIDE 102 mmol/L (98-107); CREATININE 5.9 mg/dL (0.6-1.3); GLUCOSE 157 mg/dL (74-106); POTASSIUM 4.6 mmol/L (3.5-5.1); SODIUM SERUM 141 mmol/L (136-145); UREA NITROGEN, BLOOD 42 mg/dL (7-18)
[2021-04-13 23:35] LABS: BASOPHILS # (AUTO) 0.2 K/uL (0.0-0.2); EOSINOPHILS % (AUTO) 2.1 % (0.0-6.0); HEMATOCRIT 28 % (39-51); HEMOGLOBIN 8.6 g/dL (13.5-17.5); LYMPHOCYTES # (AUTO) 2.4 K/uL (0.8-4.8); LYMPHOCYTES % (AUTO) 12.3 % (20.0-44.0); MEAN CORPUSCULAR HGB CONC 31 g/dl (31.0-36.0); MEAN CORPUSCULAR VOLUME 92 fL (80-96); MONOCYTES # (AUTO) 3.1 K/uL (0.1-1.30); NEUTROPHILS # (AUTO) 13.3 K/uL (1.8-8.9); NEUTROPHILS % (AUTO) 68.6 % (43.0-81.0); PLATELET COUNT (AUTO) 841 K/uL (150-450); RED BLOOD CELL COUNT(AUTO) 3.02 MIL/uL (4.5-6.0); WHITE BLOOD COUNT (AUTO) 19.4 K/uL (4.3-11.0)
--- NOTE | 2021-04-13 23:38 | NUR ---
SECURITY TEST ENGINEER AT BEDSIDE
[2021-04-13 23:40] LABS: ALANINE AMINOTRANSFERASE 14 U/L (12-78); ALBUMIN 2.1 g/dL (3.4-5.0); ALKALINE PHOSPHATASE 144 U/L (46-116); ASPARTATE AMINOTRANSFERASE 36 U/L (15-37); BILIRUBIN,DIRECT 0.2 mg/dL (0.0-0.2); BILIRUBIN,TOTAL 0.4 mg/dL (0.2-1.0); TOTAL PROTEIN, SERUM 8.1 g/dL (6.4-8.2)
--- NOTE | 2021-04-13 23:42 | NUR ---
PT LETHARGIC BUT ARROUSABLE. TOLERATING 6LPM VIA SIMPLE MASK AT 99%. TACHYPNIC: RR AT 35
--- NOTE | 2021-04-13 23:59 | NUR ---
COVID SWAB COLLECTED VIA ROTARY HELPER AND SENT TO LAB
--- NOTE | 2021-04-14 00:09 | NUR ---
pt is on simple face mask at 6lpm. had to document 8lpm on [employer] d/t unable to put 6lpm.
--- NOTE | 2021-04-14 00:25 | NUR ---
URINE SAMPLE COLLECTED AND SENT TO LAB
[2021-04-14] MEDS ORDERED: FUROSEMIDE 40 MG/4 ML VIAL IV ONE (00:30)
--- NOTE | 2021-04-14 00:31 | NUR ---
ASKED TACOS FROM LAB TO FOREST AND CONSERVATION WORKER URINE SAMPLE
--- NOTE | 2021-04-14 00:37 | NUR ---
followed up with lab regarding lab result, spoke with Yissel
[2021-04-14 00:49] LABS: BILIRUBIN,URINE NEGATIVE (NEGATIVE); COLOR,URINE DARK YELLOW (YELLOW); LEUKOCYTE ESTERASE ,URINE NEGATIVE (NEGATIVE); NITRITE, URINE NEGATIVE (NEGATIVE); PH,URINE 7.5 (5.0-8.0); PROTEIN,URINE >=300 mg/dl (NEGATIVE); UGLUCOSE NEGATIVE (NEGATIVE); UROBILINOGEN,URINE 0.2 EU/dL (0.2)
--- NOTE | 2021-04-14 01:30 | NUR ---
CALLED NURSING SUP FOR ROOM
--- NOTE | 2021-04-14 01:34 | NUR ---
EPIC PANEL PAGED FOR ADMISSION
[2021-04-14] MEDS ORDERED: SENNOSIDES 8.6 MG TABLET PO PRN (02:00)
[2021-04-14] MEDS ORDERED: TIZANIDINE HCL 4 MG TABLET PO PRN (02:00)
[2021-04-14] MEDS ORDERED: CLONIDINE HCL 0.1 MG TABLET PO PRN (02:00)
[2021-04-14] MEDS ORDERED: BISACODYL SUPP (10 MG) 10 MG/SUPP.RECT SUPP.RECT RC PRN (02:00)
[2021-04-14] MEDS ORDERED: LORAZEPAM 1 MG TABLET PO PRN (02:00)
[2021-04-14] MEDS ORDERED: TRAZODONE 50 MG TABLET PO PRN (02:00)
[2021-04-14] MEDS ORDERED: IPRATROPIUM NEB FS 0.5 MG/2.5 ML AMPUL.NEB NEB PRN (02:30)
[2021-04-14] MEDS ORDERED: Z GUARD REMEDY 2 OZ OINT TP PRN (02:30)
[2021-04-14] MEDS ORDERED: ONDANSETRON HCL/PF 4 MG/2 ML VIAL IVP PRN (02:30)
[2021-04-14] MEDS ORDERED: ACETAMINOPHEN 325 MG TABLET PO PRN (02:30)
[2021-04-14] MEDS ORDERED: DEXTROSE 50%-WATER 50 ML DISP.SYRIN IV PRN (02:30)
[2021-04-14] MEDS ORDERED: ALBUTEROL FS 2.5 MG/3 ML VIAL.NEB NEB PRN (02:30)
--- NOTE | 2021-04-14 02:53 | NUR ---
REPORT GIVEN TO SHERINE WEBB NURSE FOR JOHN
[2021-04-14] MEDS ORDERED: ZOSYN IVPB 3.375 G in IV D5W 50ml IV ONE (03:00)
[2021-04-14] MEDS ORDERED: PIPERACILLIN /TAZOBACTAM 3.375 G VIAL IV ONE (03:07)
[2021-04-14] MEDS ORDERED: VANCOMYCIN 1 GM VIAL ONE (03:07)
--- NOTE | 2021-04-14 03:10 | NUR ---
TRANSFERRED PT TO [facility] ROOM 120-2 VIA ACLS PROTOCOL; TOLERATING O2 6LPM VIA SIMPLE MASK WELL AT 100%. PT HAS NO BELONGINGS.
--- NOTE | 2021-04-14 03:20 | NUR ---
TELE-1/SHIPPING LEAD RECEIVED PT FROM ER RECTAL TEMP 91.2 DANIEL CAI MODEL SET ARTIST MADE AWARE ORDERS RECEIVED FOR MAXWELL THOMPSON. DNR/DNI CODE STATUS PER PT POLST WHICH IS IN THE CHART. AND INSERT REID CATH. WILL CONTINUE TO MONITOR THE PT.
[2021-04-14 03:28] VITALS: BP 128/66
--- NOTE | 2021-04-14 03:38 | NUR ---
MED NOTE: ALL MEDS ADMINISTERED UNDER VERIFIED DOSE.
[2021-04-14] MEDS ORDERED: VANCOMYCIN 1 GM in IV D5W 250ml IV ONE (04:00)
[2021-04-14 04:22] LABS: BAND % (MANUAL) 5 % (0.0-5.0); EOSINOPHILS % (MANUAL) 1 % (0-4); LYMPHOCYTES % (MANUAL) 12 % (16-48); METAMYELOCYTES % 3 % (0-0); MONOCYTES % (MANUAL) 11 % (0-11.0); NEUTROPHILS % (MANUAL) 68 (42-76)
[2021-04-14] MEDS: hydrALAZINE HCL 25 MG TABLET PO SCH ×3 (04:51→21:54)
--- NOTE | 2021-04-14 04:52 | NUR ---
MED NOTE: 0500 HYDRALAZINE PO HELD. PT IS VERY LETHARGIC AND HIGH ASPIRATION RISK. SWALLOW EVALUATION ORDERED.
[2021-04-14 05:27] LABS: ABG BASE EXCESS 1.8 mmol/L; ABG OXYGEN SATURATION 96.1 % (92.0-98.5); ABG PCO2 96.8 mmHg (35.0-45.0); ABG PH 7.139 (7.350-7.450); ABG PO2 100.4 mmHg (75.0-100.0); COHb 0.6 % (0.5-1.5); MetHb 0.2 % (0.0-1.5); O2Hb 95.3 % (94.0-97.0); SITE, ABG Left Radial; VENT MODE, BG 6L SM
--- NOTE | 2021-04-14 06:06 | NUR ---
TELE-1/RESTAURANT DELIVERY DRIVER CRITICAL ABG CALLED TO DANIEL CAI CANAL EQUIPMENT MECHANIC ORDERS RECEIVED TRO PLACE PT ON BIPAP. RT CALLED.
--- NOTE | 2021-04-14 06:31 | NUR ---
RT pt placed on bipap per md order, post abg results. bipap settings: 27/11 r16 35%. bipap plugged in to red outlet. ambu bag at bedside. pt tolerating at this time.
[2021-04-14 06:59] LABS: BASOPHILS # (AUTO) 0.1 K/uL (0.0-0.2); EOSINOPHILS % (AUTO) 1.3 % (0.0-6.0); HEMATOCRIT 26 % (39-51); HEMOGLOBIN 8.2 g/dL (13.5-17.5); LYMPHOCYTES # (AUTO) 1.3 K/uL (0.8-4.8); MEAN CORPUSCULAR HGB CONC 32 g/dl (31.0-36.0); MEAN CORPUSCULAR VOLUME 93 fL (80-96); MONOCYTES # (AUTO) 2.1 K/uL (0.1-1.30); MONOCYTES % (AUTO) 15.7 % (2.0-12.0); NEUTROPHILS # (AUTO) 9.5 K/uL (1.8-8.9); PLATELET COUNT (AUTO) 637 K/uL (150-450); RED BLOOD CELL COUNT(AUTO) 2.79 MIL/uL (4.5-6.0); WHITE BLOOD COUNT (AUTO) 13.1 K/uL (4.3-11.0)
[2021-04-14 07:11] LABS: CREATININE 6.2 mg/dL (0.6-1.3); MAGNESIUM 3.4 mg/dL (1.8-2.4); POTASSIUM 4.3 mmol/L (3.5-5.1)
[2021-04-14 07:12] LABS: PHOSPHORUS 8.1 mg/dL (2.5-4.9)
[2021-04-14] MEDS: BLOOD SUGAR DIAGNOSTIC 1 EACH STRIP IN SCH ×4 (07:14→22:09)
--- NOTE | 2021-04-14 07:52 | NUR ---
NURSE OPENING NOTE. PATIENT WAS ADMITTED FOR ACUTE CHF EXACERBATION, RESPIRATORY FAILURE AND ESRD. PATIENT CURRENTLY ON BIPAP. PATIENT IS CONFUSE AND CONSTANTLY PULLING OFF BIPAP. PATIENT IS ON BED REST. SACRAL WOUND PRESENT. ALL SAFETY MEASURE IN PLACE. BED IN LOWEST POSITION WITH HOB ELEVATED 30 DEGREE. 3 SIDE RAIL UP. CALL LIGHT WITHIN REACH. WILL CONTINUE TO MONITOR.
[2021-04-14 08:00] VITALS: BP 108/72
[2021-04-14] MEDS ORDERED: VANCOMYCIN POST DIALYSIS 500MG IV PRN (08:00)
--- NOTE | 2021-04-14 08:08 | NUR ---
PT. IS AWAKE BUT UNABLE TO FOLLOW COMMANDS PLACED INTO NASAL CANNULA @ 4L SPO2 93% Addendum: 04/14/21 at 0810 by MARY ELLEN GUZMAN RT Amended: Links added.
[2021-04-14] MEDS: AMLODIPINE BESYLATE 10 MG TABLET PO SCH (08:18)
[2021-04-14] MEDS: LamoTRIgine 25 MG TABLET PO SCH ×2 (08:18→21:54)
[2021-04-14] MEDS: FAMOTIDINE (20 MG) 20 MG TABLET PO SCH (08:18)
[2021-04-14] MEDS: LEVOTHYROXINE SODIUM 75 MCG TABLET PO SCH (08:18)
[2021-04-14] MEDS: ZINC SULFATE 220 MG CAPSULE PO SCH (08:18)
[2021-04-14] MEDS: GABAPENTIN 100 MG CAPSULE PO SCH ×2 (08:19→21:54)
[2021-04-14] MEDS: MESALAMINE 400 MG CAP PO SCH ×3 (08:19→17:00)
[2021-04-14] MEDS: DIVALPROEX SODIUM 500 MG TABLET.DR PO SCH (08:19)
[2021-04-14] MEDS: MULTIVIT W/MINERALS 1 TAB TABLET PO SCH (08:19)
[2021-04-14] MEDS: LIOTHYRONINE SODIUM (5 MCG/TA 5 MCG TABLET PO SCH ×2 (08:19→17:00)
--- NOTE | 2021-04-14 08:36 | NUR ---
NURSE NOTE. PATIENT WAS BIPAP WAS REMOVED BY RT AND REPLACED WITH NC @4L WITH HUMIDIFIER. WILL CONTINUE TO MONITOR.
[2021-04-14 08:46] LABS: IRON, SERUM 40 ug/dl (50-175); TOTAL IRON BINDING CAPACITY 75 ug/dl (250-450)
[2021-04-14 08:59] LABS: FERRITIN 952 ng/mL (8-388); THYROID STIMULATING HORMONE 23.367 uIU/mL (0.358-3.74)
[2021-04-14] MEDS ORDERED: MESALAMINE PO SCH (09:00)
[2021-04-14 09:31] LABS: BAND % (MANUAL) 2 % (0.0-5.0); EOSINOPHILS % (MANUAL) 3 % (0-4); LYMPHOCYTES % (MANUAL) 7 % (16-48); METAMYELOCYTES % 3 % (0-0); MONOCYTES % (MANUAL) 11 % (0-11.0); NEUTROPHILS % (MANUAL) 74 (42-76)
[2021-04-14 09:43] LABS: ABG BASE EXCESS -0.9 mmol/L; ABG PH 7.238 (7.350-7.450); ABG PO2 100.3 mmHg (75.0-100.0); AaDO2 110.2 mmHg; COHb 0.9 % (0.5-1.5); MetHb 0.3 % (0.0-1.5); O2Hb 95.8 % (94.0-97.0); SITE, ABG Right Brachial; VENT MODE, BG nasal cannula
[2021-04-14] MEDS: ALBUTEROL HALF STRENGTH 1.25 MG/3 ML VIAL.NEB NEB SCH ×5 (10:00→23:30)
[2021-04-14] MEDS: IPRATROPIUM NEB FS 0.5 MG/2.5 ML AMPUL.NEB NEB SCH ×5 (10:20→23:30)
[2021-04-14] MEDS: methylPREDNISolone SOD SUCC 125 MG/2ML VIAL IV SCH ×2 (11:02→18:05)
[2021-04-14 12:00] VITALS: BP 108/65
--- NOTE | 2021-04-14 12:24 | NUR ---
PT. PLACED INTO BIPAP DUE TO INCREASED WORK OF BREATHING. Addendum: 04/14/21 at 1226 by MARY ELLEN GUZMAN RT Amended: Links added.
[2021-04-14] MEDS: PIPERACILLIN /TAZOBACTAM 2.25 G in IV D5W 50 ML IV SCH ×2 (12:26→21:54)
--- NOTE | 2021-04-14 14:31 | NUR ---
NURSE NOTE DID NOT ADMINISTER HYDRALAZINE AND MESALAMINE. PATIENT ON BIPAP. DR. CAR ORDER TO HOLD MEDICATION
[2021-04-14 16:00] VITALS: BP 163/73
--- NOTE | 2021-04-14 19:11 | NUR ---
NURSE CLOSING NOTE. PATIENT HAVE BEEN LETHARGIC WITH SHALLOW LABOR BREATHING. PATIENT HAVE BEEN SWITCH FORM BIPAP TO SIMPLE MASK BUT UNABLE TO SUSTAIN NORMAL MENTAL STATUS. BIPAP WITH PUT BACK ON PATIENT. NOW PATIENT IS ALERT BUT WANTING TO PULL OFF BIPAP. CONSTANT REINFORCEMENT REQUIRE. TEMPERATURE HAVE WAS LOW THIS MORNING BUT HAVE BEEN INCREASED FOR 92 DEGREE TO 99 DEGREE. PATIENT IS RECEIVING DIALYSIS AND IN STABLE CONDITION. SAFETY MEASURE IN PLACE WITH BED ON THE LOWEST POSITION WITH HOB ELEVATED AT 30 DEGREE. 3 SIDE RAIL UP. CALL LIGHT WITHIN REACH.
--- NOTE | 2021-04-14 19:30 | NUR ---
RN NOTE RECEIVED PT ON BIPAP, RESPONDS TO STIMULI, NO DISTRESS NOTED. CURRENTLY RECEIVING DIALYSIS, DIALYSIS NURSE AT BEDSIDE. REID IN PLACE, WITH MINIMAL OUTPUT, ABOUT 10CC. PT ON BILATERAL WRIST RESTRAINTS WITH GOOD CIRCULATION. ALL SAFETY IN PLACE. WILL CONTINUE TO MONITOR.
--- NOTE | 2021-04-14 19:33 | NUR ---
RN NOTE PT HAVING DIALYSIS AT THIS TIME. WITH ORDER OF IV VANCO POST DIALYSIS. CALLED PHARMACY REGARDING IT, NO VANCO RANDOM ORDERED. SPOKE TO JUNIOR FROM PHARMACY, OK NOT TO GIVE THE VANCOMYCIN SINCE PT ALREADY HAD A DOSE THIS MORNING. WILL ORDER VANCO RANDOM IN AM.
--- NOTE | 2021-04-14 19:49 | NUR ---
RCVD PT ON BIPAP 27/11 RATE 16, FIO2 35%. BIPAP PLUGGED INTO RED OUTLET, ALARMS ON AND AUDIBLE. NO DISTRESS NOTED AT THIS TIME. WILL CONTINUE TO MONITOR T/O SHIFT.
--- NOTE | 2021-04-14 19:52 | NUR ---
BREATHING TX NOT GIVEN DUE TO PENDING PCR COVID RESULT . SPO2 96% , [facility] NOTIFIED.
[2021-04-14 20:00] VITALS: BP 127/85
--- NOTE | 2021-04-14 21:05 | NUR ---
RN NOTE PT DONE WITH HD. REMOVED 2L. PT VS WNL. WILL CONTINUE TO MONITOR.
[2021-04-14] MEDS: ATORVASTATIN 10 MG TABLET PO SCH (21:54)
[2021-04-15] VITALS: BP 114/53
[2021-04-15] MEDS: ALBUTEROL HALF STRENGTH 1.25 MG/3 ML VIAL.NEB NEB SCH ×6 (03:30→23:08)
[2021-04-15] MEDS: IPRATROPIUM NEB FS 0.5 MG/2.5 ML AMPUL.NEB NEB SCH ×6 (03:30→23:08)
[2021-04-15 04:00] VITALS: BP 136/72
[2021-04-15] MEDS: PIPERACILLIN /TAZOBACTAM 2.25 G in IV D5W 50 ML IV SCH ×3 (04:55→20:49)
[2021-04-15] MEDS: hydrALAZINE HCL 25 MG TABLET PO SCH ×3 (05:11→20:55)
--- NOTE | 2021-04-15 07:16 | NUR ---
RN NOTE PT REMAINS ON BIPAP, TOLERATING. NO RESP DISTRESS NOTED. O2 SAT AT 98 %. PT STILL WITH EPISODES OF PULLING OUT BIPAP, REMAIN ON RESTRAINTS. WITH GOOD CIRCULATION NO NEW SKIN BREAKDOWN NOTED. TEMP WNL. WOUND TX DONE. WILL ENDORSE TO NEXT SHIFT NURSE FOR JOHN.
--- NOTE | 2021-04-15 07:32 | NUR ---
RN NOTE PATIENT RECEIVED IN BED, AWAKE, ALERT AND ORIENTED X 1-2. PATIENT ON BIPAP, TOLERATING WELL WITH SPO2 SATURATION ABOVE 95%. PATIENT ON MARINE ENGINEER CPVEC. PATIENT HAS REID CATHETER IN PLACE. IV ACCESS INTACT AND PATENT. NOTED RIGHT CHEST PERMACATH. NOTED BILATERAL SOFT WRIST RESTRAINTS DUE TO PATIENT REMOVING BIPAP, ADEQUATE SKIN CIRCULATION WNL. SAFETY PRECAUTION IN PLACE WITH BED LOCKED, BED ALARM, HOB ELEVATED, BED IN THE LOWEST POSITION, AND CALL LIGHT WITHIN EASY REACH. WILL CONTINUE TO MONITOR PATIENT.
[2021-04-15 08:00] VITALS: BP 102/73
[2021-04-15] MEDS: BLOOD SUGAR DIAGNOSTIC 1 EACH STRIP IN SCH ×4 (09:00→23:36)
[2021-04-15] MEDS: AMLODIPINE BESYLATE 10 MG TABLET PO SCH (09:00)
[2021-04-15] MEDS: DIVALPROEX SODIUM 500 MG TABLET.DR PO SCH (09:01)
[2021-04-15] MEDS: MESALAMINE 400 MG CAP PO SCH ×3 (09:01→16:45)
[2021-04-15] MEDS: ZINC SULFATE 220 MG CAPSULE PO SCH (09:01)
[2021-04-15] MEDS: FAMOTIDINE (20 MG) 20 MG TABLET PO SCH (09:01)
[2021-04-15] MEDS: LamoTRIgine 25 MG TABLET PO SCH ×2 (09:01→20:50)
[2021-04-15] MEDS: LIOTHYRONINE SODIUM (5 MCG/TA 5 MCG TABLET PO SCH ×2 (09:01→16:45)
[2021-04-15] MEDS: GABAPENTIN 100 MG CAPSULE PO SCH ×2 (09:01→20:50)
[2021-04-15] MEDS: MULTIVIT W/MINERALS 1 TAB TABLET PO SCH (09:01)
[2021-04-15] MEDS: methylPREDNISolone SOD SUCC 125 MG/2ML VIAL IV SCH ×2 (09:03→16:45)
[2021-04-15] MEDS: LEVOTHYROXINE SODIUM 75 MCG TABLET PO SCH (09:03)
[2021-04-15] MEDS: INSULIN REGULAR, HUMAN 100 UNIT/ML 3 ML VIAL SQ PRN ×3 (09:04→23:41)
--- NOTE | 2021-04-15 09:20 | NUR ---
PT. IS AWAKE AND ALERT PLACED INTO NASAL CANNULA @ 2LPM OXYGEN FLOW. RN AWARE Addendum: 04/15/21 at 0922 by MARY ELLEN GUZMAN RT Amended: Links added.
[2021-04-15 12:00] VITALS: BP 102/73
--- NOTE | 2021-04-15 15:21 | NUR ---
INCREASE WORK OF BREATHING PT PLACED INTO BIPAP DUE TO 27 RESPIRATIONS. Addendum: 04/15/21 at 1522 by MARY ELLEN GUZMAN RT Amended: Links added.
[2021-04-15 16:00] VITALS: BP 139/78
--- NOTE | 2021-04-15 18:45 | NUR ---
RN NOTE PATIENT IN BED, AWAKE, ALERT AND ORIENTED X 1-2. PATIENT ON NASAL CANNULA AT THIS TIME DUE TO EATING DINNER, TOLERATING WELL WITH SPO2 SATURATION ABOVE 94%. PATIENT ON WOOL WASHER. PATIENT HAS REID CATHETER IN PLACE. IV ACCESS INTACT AND PATENT. NOTED RIGHT CHEST PERMACATH. NOTED BILATERAL SOFT WRIST RESTRAINTS DUE TO PATIENT REMOVING BIPAP AND REMOVING EQUIPMENT, ADEQUATE SKIN CIRCULATION WNL Q15 MIN VISUAL CHECKS DONE. MET ALL OF PATIENT NEEDS. SAFETY PRECAUTION IN PLACE WITH BED LOCKED, BED ALARM, HOB ELEVATED, BED IN THE LOWEST POSITION, AND CALL LIGHT WITHIN EASY REACH. WILL ENDORSE PLAN OF CARE TO UPCOMING RN.
--- NOTE | 2021-04-15 19:37 | NUR ---
RCVD PT ON BIPAP 24/ RATE 16, FIO2 35%. PT IS ALERT AND ORIENTED. NO RESPIRATORY DISTRESS NOTED AT THIS TIME. NOTICED SORE ON THE BRIDGE OF THE NOSE. RN AWARE. WILL CONTINUE TO MONITOR T/O SHIFT
[2021-04-15 20:00] VITALS: BP 159/88
[2021-04-15] MEDS: ATORVASTATIN 10 MG TABLET PO SCH (21:01)
[2021-04-16] VITALS: BP 120/75
[2021-04-16] MEDS: IPRATROPIUM NEB FS 0.5 MG/2.5 ML AMPUL.NEB NEB SCH ×6 (03:29→23:11)
[2021-04-16] MEDS: ALBUTEROL HALF STRENGTH 1.25 MG/3 ML VIAL.NEB NEB SCH ×6 (03:29→23:11)
[2021-04-16 04:00] VITALS: BP 150/80
[2021-04-16] MEDS: PIPERACILLIN /TAZOBACTAM 2.25 G in IV D5W 50 ML IV SCH ×3 (05:12→21:50)
[2021-04-16] MEDS: hydrALAZINE HCL 25 MG TABLET PO SCH ×4 (05:18→21:50)
[2021-04-16 06:43] LABS: BASOPHILS # (AUTO) 0.1 K/uL (0.0-0.2); BASOPHILS % (AUTO) 0.4 % (0.0-2.0); HEMATOCRIT 22 % (39-51); HEMOGLOBIN 7.2 g/dL (13.5-17.5); LYMPHOCYTES # (AUTO) 1.3 K/uL (0.8-4.8); LYMPHOCYTES % (AUTO) 8.5 % (20.0-44.0); MEAN CORPUSCULAR HGB CONC 32 g/dl (31.0-36.0); MEAN CORPUSCULAR VOLUME 89 fL (80-96); MONOCYTES # (AUTO) 1.5 K/uL (0.1-1.30); MONOCYTES % (AUTO) 9.7 % (2.0-12.0); NEUTROPHILS # (AUTO) 12.8 K/uL (1.8-8.9); NEUTROPHILS % (AUTO) 81.4 % (43.0-81.0); PLATELET COUNT (AUTO) 677 K/uL (150-450); WHITE BLOOD COUNT (AUTO) 15.8 K/uL (4.3-11.0)
[2021-04-16 07:06] LABS: CALCIUM, SERUM 8.4 mg/dL (8.5-10.1); CREATININE 5.3 mg/dL (0.6-1.3); MAGNESIUM 3.1 mg/dL (1.8-2.4); PHOSPHORUS 6.5 mg/dL (2.5-4.9); POTASSIUM 4.1 mmol/L (3.5-5.1)
--- NOTE | 2021-04-16 07:33 | NUR ---
RN NOTE PATIENT IS IN BED WITH HOB AT SEMI FOWLERS POSITION. PATIENT IS ON BIPAP WITH NO SIGNS OF LABORED BREATHING. PATIENT IS AOX1. RFA 20 IS PATENT AND INTACT. BED IS LOCKED IN THE LOWEST POSITION, 3 GUARD RAILS RAISED, CALL MORGAN WITHIN REACH, AND ALL HOSPITAL SAFETY PRECAUTIONS ARE BEING FOLLOWED. WILL CONTINUE TO MONITOR THROUGHOUT SHIFT.
--- NOTE | 2021-04-16 07:49 | NUR ---
report given to am shift nurse for cont. of care
[2021-04-16] MEDS: BLOOD SUGAR DIAGNOSTIC 1 EACH STRIP IN SCH ×4 (07:52→21:51)
[2021-04-16 08:00] VITALS: BP 127/60
[2021-04-16] MEDS: ZINC SULFATE 220 MG CAPSULE PO SCH (08:55)
[2021-04-16] MEDS: LamoTRIgine 25 MG TABLET PO SCH ×2 (08:56→21:51)
[2021-04-16] MEDS: DIVALPROEX SODIUM 500 MG TABLET.DR PO SCH (08:56)
[2021-04-16] MEDS: AMLODIPINE BESYLATE 10 MG TABLET PO SCH (08:56)
[2021-04-16] MEDS: LIOTHYRONINE SODIUM (5 MCG/TA 5 MCG TABLET PO SCH ×2 (08:56→17:57)
[2021-04-16] MEDS: GABAPENTIN 100 MG CAPSULE PO SCH ×2 (08:57→21:51)
[2021-04-16] MEDS: methylPREDNISolone SOD SUCC 125 MG/2ML VIAL IV SCH ×2 (08:57→17:57)
[2021-04-16] MEDS: MULTIVIT W/MINERALS 1 TAB TABLET PO SCH (08:57)
[2021-04-16] MEDS: LEVOTHYROXINE SODIUM 75 MCG TABLET PO SCH (09:04)
[2021-04-16] MEDS: FAMOTIDINE (20 MG) 20 MG TABLET PO SCH (09:04)
--- NOTE | 2021-04-16 10:02 | NUR ---
WOUND CARE CONSULT: PT HAVING SWALLOW EVAL AT THIS TIME. REVIEWED CHART, NURSING DOCUMENTATION AND PHOTO WHICH INDICATES SACRAL FULL THICKNESS WOUND, PRESENT ON ADMISSION. DR BLANCO NOTIFIED OF SURGICAL CONSULT. PT IS ON CHRIS ISOFLEX LOW AIRLOSS BED. RECOMMENDATIONS MADE FOR SKIN PROTECTION. DISCUSSED WITH NURSING STAFF. MD IN AGREEMENT WITH PLAN OF CARE.
--- NOTE | 2021-04-16 10:03 | NUR ---
SS consult requested and SW will follow up at a later time.
[2021-04-16 12:00] VITALS: BP 154/76
[2021-04-16] MEDS ORDERED: MESALAMINE 400 MG CAP PO SCH (13:00)
[2021-04-16] MEDS ORDERED: NEPRO VAN 237 ML CAN PO PRN (13:00)
[2021-04-16] MEDS: INSULIN REGULAR, HUMAN 100 UNIT/ML 3 ML VIAL SQ PRN ×3 (14:24→21:52)
--- NOTE | 2021-04-16 15:24 | NUR ---
Social Service consult: Social service consult requested for possible self neglect. The pt. is a 65 year old male in [place] seeking medical attention for shortness of breath. SW met with pt. at bedside. The pt. is currently alert and oriented x 3 and makes good eye contact. The pt. appears well-groomed and current mood is depressed with flat affect. SW called and spoke to the pt.'s current facility, [facility] ([phone]). SW was informed by pt.'s nurse Perez that the pt. had a couple of episodes where he was refusing to complete HD treatment. Per EMR, pt. only had 20 minutes of HD as he requested to return to the facility. SW explored why pt. refused to complete HD treatment. Pt. stated that he became "frustrated about dialysis." SW asked pt. if he has been informed about the risks of not completing HD treatment and encouraged pt. to complete his treatment for his well-being. Pt. stated that he is aware of the risks of not completing treatment and stated that he will remain compliant with HD treatment. Pt. stated that his current next of kin is his brother, Genet Carrillo ([phone]). Per pt., he never or had children. Per pt., he does not have a POA or conservator. Per pt., he does not want either of these as well. SW called and spoke to genet regarding the situation regarding collateral information. Genet stated that he is aware the pt. has been refusing HD treatment. Genet expressed that the pt. has always been strong willed and he does encourage pt. to comply with treatment. However, he does respect pt.'s self-determination. Plan: SW will follow up and complete APS report. The pt. stated that he would like to return to [facility] upon discharge. animal services officer placed senior resources in chart for discharge planning. ABUSE PREVENTION: ELDER ABUSE HOTLINE (27/01) ADULT PROTECTIVE SERVICES HOTLINE LONG-TERM CARE [facility] Region AREA ON AGING (HOTLINE) ADULT DAY HEALTH CARE CARE CENTERS: Private pay or Medi-katharine funded adult day care [facility] Day Health [facility] , [facility] Services , [facility] , [facility] Day Health Care , [facility] Day Health Care , [facility] Adult [facility] Center , [place] [facility] Generation Center , [facility] , [place] ALZHEIMERS DISEASE/DEMENTIA: Alzheimers Association Helpline [facility] Chapter www.alz.org/[facility] Department of Aging www.lacity.org Family Caregiver [place] www.caregiver.org [place] Caregiver Resources Center/Family Support www.[facility].org CANCER RESOURCES: [place] Cancer Society www.cancer.org Cancer Support Community www.CancerSupportVvsb.org: CancerCare www.cancercare.org [facility] Cancer Support Center www.[facility].org COMMUNITY HEALTH ASSOCIATIONS: AARP www.aarp.org ALS Association (ask for Melly) www.als.org [place] Diabetes Association www.diabetes.org [place] Heart Association www.heart.org [place] Lung Association www.lungusa.org [place] Parkinson Disease Association www.apdaparkinson.org Swazi Vaughn , www.redcross.org Arthritis Foundation www.arthritis.org Crohns & Colitis Foundation of [place] www.ccfa.org/chapters/donny National Multiple Sclerosis Society www.nationalmssociety.org Myasthenia Gravis Foundation www.myasthenia-ca.org National Stroke Association www.stroke.org CONSERVATORSHIP & GUARDIANSHIP: AARP Gin Elias Legal Services Center for Health Care Rights Eldercare Information and Referral Crime Analyst Foundation [facility]: [facility] Referral Service [facility] Legal Services Office of the Public Guardian [place] EYESIGHT DISORDER RESOURCES: [place] Macular Degeneration Foundation [facility] www.[facility].org GRIEF AND BEREAVEMENT RESOURCES: [facility] Place , [facility] THE H[place]S [place]OVE Connection , [facility] Bereavement Center , [place] HEARING DISORDER RESOURCES: [place] Telephone Access Program Deaf and Disabled Telecommunications Program www.ddtp.cpu.ca.gov HearRx Hearing Centers ([place]) Better Hearing Systems , [place] GLAD ([facility] Agency on Deafness) V/ TTY; Filling Hauler , [facility] Hearing [facility] -low income hearing aid assistance www.YuMinglehearingfoundation.org [place] Hearing Care , [place] HELP AT HOME CAREGIVER SUPPORT: In Home Support Services (Must have Medi-Katharine to be eligible) *Ask for a list of agencies that provide services to assist with care in the home. Local Senior Centers also have listings of care providers. HOME SAFETY MODIFICATIONS AND EQUIPMENT: Senior centers have additional referrals. [place] Housing and Community Investment Dept. Handyworker Program (low income) or Visit http://hcidla.lacity.org/fub-zbjqlh-dh for more information National Seating and Mobility and/or ; Forever Active www.foreverCanal Internetmed.com Stay Home Safe www.Stayhomesafe.com LIFE ALERT RESPONSE SYSTEM: ReferMe Services 469-848-3509 www. DNP Green Technology Life Alert 860-412-4593 www.NetIQ Life Station 409-815-6657 wwwCommunity Informaticsation.Astute Medical Safe Return 986-569-0324 www.alz.or/safereturn Cell Phones for Seniors www.Vertra MEALS AND FOOD PROGRAMS: [place] Meals on Wheels [phone] [place] Meals on Wheels [phone] [facility] [phone] [place] to the Homebound [phone] [place] to the Homebound [phone] [facility] to the Homebound [phone] [facility] to the Homebound [phone] [facility] [phone] [facility] [phone] ONE Generation [phone] [facility] [phone] [facility] [phone] Meals on Wheels [phone] For all ages: $6.85/ meal w side. Delivered M-F from 10 am-1pm. Application and payment is done over the phone. Frozen meals available for weekends. Emergency Food [facility] [phone] [facility] Quality Control Expert [phone] [facility] [phone] [facility] Brown bag lunches [phone] [facility] [phone] MEAL/GROCERY DELIVERY PROGRAMS: [facility] Gourmet Meals [phone]- [facility] [phone]- [facility] Magic Kitchen [phone] Moms Meals [phone] (ask Owusu for Discount Select grocery stores may provide delivery. MEDICAL INSURANCE SUPPORT SERVICES: Center for Health Care Rights [phone] Health Insurance Counseling/Advocacy Programs (HICAP)-Must have Medicare. Offers counseling for Medi-Katharine eligibility [phone] [facility] Public Quality Control Expert [phone] www.[facility].ca.gov Medicare 678-471-1070 www.socialsecurity.org Social Security [phone] SENIOR ACTIVITY PROGRAMS: *Contact a local senior center, adult school, recreation facility or community college for education, fitness, recreation, and social programs. Aquatic Therapy and Adapted Exercise programs through [facility] [phone] Encore at [facility] [phone] www.[facility]/encore H2U- Senior Friends [phone] [place] Senior Programs 421-018-4696 www.oasisnet.org Suddenly 65 www.pvfcgjad78.com SENIOR CENTERS: [facility] [phone] [facility] [phone] [facility] [phone] [facility] [phone] [facility] [phone] [facility] [phone] [facility] [phone] [facility] [phone] One Generation, [facility] [phone] [facility] [phone] [facility] [phone] [facility] [phone] [facility] [place] [phone] TRANSPORTATION: Local [facility] may have applications for transportation programs and additional resources. ACCESS Services [phone] Transportation for seniors and disabled persons 7 days a week requiring 254 hr. advance reservation. Must apply and register for program lyn eligible. [employer] TV 180-863-3712 or [phone] Transportation for seniors and persons with ADA card/metro disabled card in the [facility]. M-F only. Must register for services. ONE GENERATION [phone] Serves 65 years + in conjunction with Plehn Analytics program. Must be registered with both programs. A to B Transport [phone] Provides wheelchair/gurney van service. Adult Medical Transport [phone] Accepts Medi-katharine with prior authorization. Care Van [phone] Provides [address]. [facility] Wide Transportation [phone] Provides gurney service [facility] [phone] Gurney Transport. [facility] Transportation [phone] wheelchair & gurney transport [facility] Transportation [phone] wheelchair & gurney transport [place] Non-Emergency Transport [phone] wheelchair & gurney transport [facility] Living Center [phone] Short Term Transportation primarily for adults with disabilities on social security income. Nominal fee may apply and a reservation is required. [employer] [phone] or [phone] [employer] [phone] [place] [address] Referral Services -[phone] For additional programs & services VETERANS RESOURCES: Submissions for Aid and Attendance should be done directly to [facility] office locatd at : [address] [facility] [phone] National Caregiver Support Line [phone] [facility] Veterans Services Field Office [phone] [place] Department of Affairs [phone] Pension Information [phone]
--- NOTE | 2021-04-16 15:58 | NUR ---
APS Report: SS completed APS Report Intake #[id number].
[2021-04-16 16:00] VITALS: BP 126/64
[2021-04-16] MEDS: SEVELAMER CARBONATE 800 MG POWD.PACK PO SCH (17:57)
--- NOTE | 2021-04-16 18:19 | NUR ---
RN NOTE ATTEMPTED TO CONTACT NEXT OF KIN X2. UNSUCCESSFUL. WILL ENDORSE TO RECORD RETRIEVAL SPECIALIST RN.
[2021-04-16] MEDS: THERAHONEY GEL 1.5 OZ TUBE TP SCH (18:31)
--- NOTE | 2021-04-16 18:43 | NUR ---
RN NOTE NOTIFIED DR. OLIVARES OF DELZICOL UNABLE TO BE CRUSHED AND PATIENT UNABLE TO TOLERATE WHOLE PILLS. AWAITING RESPONSE. Addendum: 04/16/21 at 1847 by RIYA MATHIS RN OKAY TO HOLD PER DR. OLIVARES.
--- NOTE | 2021-04-16 18:44 | NUR ---
RN NOTE PATIENT IS IN BED WITH HOB AT SEMI FOWLERS POSITION. PATIENT IS ON 3L NC WITH NO SIGNS OF LABORED BREATHING. PATIENT IS AOX1. RFA 20 IS PATENT AND INTACT. BED IS LOCKED IN THE LOWEST POSITION, 3 GUARD RAILS RAISED, CALL MORGAN WITHIN REACH, AND ALL HOSPITAL SAFETY PRECAUTIONS ARE BEING FOLLOWED. PATIENT REMAINED STABLE THROUGHOUT SHIFT. WILL ENDORSE TO WELL SHOOTER RN.
[2021-04-16 20:00] VITALS: BP 141/80
--- NOTE | 2021-04-16 20:00 | NUR ---
RN NOTE PATIENT AWAKE AND RESPONSIVE, PLACED ON BIPAP, O2 SAT 98%. DENIES ANY PAIN OR DISCOMFORT AT THIS TIME. IV ACCESS ON RIGHT FA #20 PATENT AND INTACT. NOTED WITH RIGHT CHEST WALL PERMACATH, DRESSING DRY AND INTACT. BED LOCKED AND IN LOWEST POSITION. CALL LIGHT WITHIN REACH. WILL CONTINUE TO MONITOR.
[2021-04-16] MEDS: ATORVASTATIN 10 MG TABLET PO SCH (21:54)
--- NOTE | 2021-04-16 23:16 | NUR ---
RT NOTE PT REFUSED BIPAP AT THIS TIME. REMOVED BIPAP AT PLACED ON 3LPM NASAL CANNULA. RN BRIDGETT AWARE. NO RESPIRATORY DISTRESS NOTED. WILL CONTINUE TO MONITOR PATIENT. CONT. PULSE OX CONNECTED.
--- NOTE | 2021-04-16 23:17 | NUR ---
PATIENT REFUSING BIPAP, PLACED BACK ON O2 3L VIA NASAL CANNULA. NO SIGNS OF RESPIRATORY DISTRESS. WILL CONTINUE TO MONITOR.
[2021-04-17] VITALS: BP 133/33
[2021-04-17 04:00] VITALS: BP 164/96
[2021-04-17] MEDS: ALBUTEROL HALF STRENGTH 1.25 MG/3 ML VIAL.NEB NEB SCH ×6 (04:30→23:23)
[2021-04-17] MEDS: IPRATROPIUM NEB FS 0.5 MG/2.5 ML AMPUL.NEB NEB SCH ×6 (04:31→23:22)
[2021-04-17] MEDS: PIPERACILLIN /TAZOBACTAM 2.25 G in IV D5W 50 ML IV SCH ×3 (04:39→22:04)
[2021-04-17] MEDS: hydrALAZINE HCL 25 MG TABLET PO SCH ×3 (04:40→22:05)
--- NOTE | 2021-04-17 05:20 | NUR ---
RT NOTE PT TOLERATING 3LPM NASAL CANNULA WELL. PT AWAKE/ALERT AND ABLE TO FOLLOW COMMANDS. NO RESPIRATORY DISTRESS NOTED. CONT. PULSE OX CONNECTED. BIPAP STANDBY.
[2021-04-17 06:44] LABS: BASOPHILS % (AUTO) 0.2 % (0.0-2.0); HEMATOCRIT 23 % (39-51); HEMOGLOBIN 7.5 g/dL (13.5-17.5); LYMPHOCYTES # (AUTO) 1.6 K/uL (0.8-4.8); LYMPHOCYTES % (AUTO) 9.7 % (20.0-44.0); MEAN CORPUSCULAR HGB CONC 32 g/dl (31.0-36.0); MEAN CORPUSCULAR VOLUME 91 fL (80-96); MONOCYTES # (AUTO) 1.2 K/uL (0.1-1.30); MONOCYTES % (AUTO) 7.2 % (2.0-12.0); NEUTROPHILS # (AUTO) 13.3 K/uL (1.8-8.9); NEUTROPHILS % (AUTO) 82.9 % (43.0-81.0); PLATELET COUNT (AUTO) 715 K/uL (150-450); RED BLOOD CELL COUNT(AUTO) 2.57 MIL/uL (4.5-6.0); WHITE BLOOD COUNT (AUTO) 16.1 K/uL (4.3-11.0)
--- NOTE | 2021-04-17 07:21 | NUR ---
RN NOTE PATIENT RESTING IN BED. CONTINUES ON O2 3L VIA NASAL CANNULA. NO SIGNS OF RESPIRATORY DISTRESS. DENIES ANY PAIN OR DISCOMFORT AT THIS TIME. IV ACCESS ON RIGHT FA #20 PATENT AND INTACT. NOTED WITH RIGHT CHEST WALL PERMACATH, DRESSING DRY AND INTACT. KEPT CLEAN AND DRY. BED LOCKED AND IN LOWEST POSITION. CALL LIGHT WITHIN REACH. WILL ENDORSE TO AM SHIFT.
[2021-04-17 07:26] LABS: CALCIUM, SERUM 8.8 mg/dL (8.5-10.1); CREATININE 6.3 mg/dL (0.6-1.3); MAGNESIUM 3.8 mg/dL (1.8-2.4); POTASSIUM 4.4 mmol/L (3.5-5.1)
[2021-04-17 07:39] LABS: PHOSPHORUS 8.1 mg/dL (2.5-4.9)
--- NOTE | 2021-04-17 07:41 | NUR ---
RIBBING MACHINE OPERATOR NOTES PT IN BED, ASLEEP, EASILY AROUSABLE, NO SIGN OF PAIN, NOT IN DISTRESS, CALL LIGHT WITHIN REACH, KEPT WARM AND COMFORTABLE.
[2021-04-17 08:00] VITALS: BP 132/62
[2021-04-17] MEDS: THERAHONEY GEL 1.5 OZ TUBE TP SCH (09:08)
[2021-04-17] MEDS: methylPREDNISolone SOD SUCC 125 MG/2ML VIAL IV SCH ×2 (09:09→15:30)
[2021-04-17] MEDS: MULTIVIT W/MINERALS 1 TAB TABLET PO SCH (09:09)
[2021-04-17] MEDS: LEVOTHYROXINE SODIUM 75 MCG TABLET PO SCH (09:09)
[2021-04-17] MEDS: DIVALPROEX SODIUM 500 MG TABLET.DR PO SCH (09:09)
[2021-04-17] MEDS: FAMOTIDINE (20 MG) 20 MG TABLET PO SCH (09:09)
[2021-04-17] MEDS: ZINC SULFATE 220 MG CAPSULE PO SCH (09:09)
[2021-04-17] MEDS: LIOTHYRONINE SODIUM (5 MCG/TA 5 MCG TABLET PO SCH ×2 (09:09→16:35)
[2021-04-17] MEDS: GABAPENTIN 100 MG CAPSULE PO SCH ×2 (09:09→22:04)
[2021-04-17] MEDS: AMLODIPINE BESYLATE 10 MG TABLET PO SCH (09:10)
[2021-04-17] MEDS: SEVELAMER CARBONATE 800 MG POWD.PACK PO SCH ×3 (09:10→17:19)
[2021-04-17] MEDS: LamoTRIgine 25 MG TABLET PO SCH ×2 (09:10→22:05)
[2021-04-17] MEDS: INSULIN REGULAR, HUMAN 100 UNIT/ML 3 ML VIAL SQ PRN ×3 (09:24→22:06)
[2021-04-17] MEDS: BLOOD SUGAR DIAGNOSTIC 1 EACH STRIP IN SCH ×4 (09:24→22:05)
[2021-04-17 10:00] LABS: LYMPHOCYTES % (MANUAL) 9 % (16-48); MONOCYTES % (MANUAL) 9 % (0-11.0); NEUTROPHILS % (MANUAL) 82 (42-76)
[2021-04-17] MEDS ORDERED: HALOPERIDOL 1 MG TABLET PO PRN (10:30)
[2021-04-17 12:00] VITALS: BP 101/64
[2021-04-17] MEDS ORDERED: APIXABAN 5 MG TABLET PO SCH ×2 (13:00→21:00)
[2021-04-17 16:00] VITALS: BP 140/69
[2021-04-17] MEDS ORDERED: EPOETIN ALFA (4000 UNIT) 4,000 UNIT/ML VIAL IV SCH (17:30)
--- NOTE | 2021-04-17 18:20 | NUR ---
RN MS NOTES PT IN BED, AWAKE, ALERT TO SELF, WITH PERIODS OF CONFUSION, CALL LIGHT WITHIN REACH, NO COMPLAINT OF PAIN OR ANY DISCOMFORT, PM MEDS GIVEN ORDERED, KEPT CLEAN AND DRY, COMPLETED HEMODIALYSIS TODAY.
--- NOTE | 2021-04-17 19:55 | NUR ---
RN NOTE PATIENT ALERT AND ORIENTED X1-2. ON O2 3L VIA NASAL CANNULA, NO S/S OF ACUTE DISTRESS. DENIES ANY PAIN OR DISCOMFORT AT THIS TIME. IV ACCESS ON RIGHT FA #20 PATENT AND INTACT. NOTED WITH RIGHT CHEST WALL PERMACATH, DRESSING DRY AND INTACT. TURNED AND REPOSITIONED. BILATERAL SOFT WRIST RESTRAINTS NOTED, NO S/S OF ANY SKIN BREAKDOWN. BED LOCKED AND IN LOWEST POSITION. CALL LIGHT WITHIN REACH. ALL NEEDS ANTICIPATED.
[2021-04-17 20:00] VITALS: BP 152/80
[2021-04-17] MEDS: ATORVASTATIN 10 MG TABLET PO SCH (22:04)
[2021-04-18] MEDS: IPRATROPIUM NEB FS 0.5 MG/2.5 ML AMPUL.NEB NEB SCH ×6 (03:38→23:16)
[2021-04-18] MEDS: ALBUTEROL HALF STRENGTH 1.25 MG/3 ML VIAL.NEB NEB SCH ×6 (03:38→23:16)
[2021-04-18 04:00] VITALS: BP 152/81
[2021-04-18] MEDS: PIPERACILLIN /TAZOBACTAM 2.25 G in IV D5W 50 ML IV SCH (05:01)
[2021-04-18] MEDS: hydrALAZINE HCL 25 MG TABLET PO SCH ×3 (05:02→21:42)
[2021-04-18 06:34] LABS: BASOPHILS # (AUTO) 0.1 K/uL (0.0-0.2); BASOPHILS % (AUTO) 0.4 % (0.0-2.0); HEMATOCRIT 26 % (39-51); HEMOGLOBIN 8.3 g/dL (13.5-17.5); LYMPHOCYTES # (AUTO) 1.7 K/uL (0.8-4.8); LYMPHOCYTES % (AUTO) 9.2 % (20.0-44.0); MEAN CORPUSCULAR HGB CONC 32 g/dl (31.0-36.0); MEAN CORPUSCULAR VOLUME 90 fL (80-96); MONOCYTES # (AUTO) 1.7 K/uL (0.1-1.30); MONOCYTES % (AUTO) 8.9 % (2.0-12.0); NEUTROPHILS # (AUTO) 15.2 K/uL (1.8-8.9); NEUTROPHILS % (AUTO) 81.5 % (43.0-81.0); PLATELET COUNT (AUTO) 722 K/uL (150-450); RED BLOOD CELL COUNT(AUTO) 2.85 MIL/uL (4.5-6.0); WHITE BLOOD COUNT (AUTO) 18.7 K/uL (4.3-11.0)
[2021-04-18 06:55] LABS: CALCIUM, SERUM 8.4 mg/dL (8.5-10.1); CREATININE 3.9 mg/dL (0.6-1.3); MAGNESIUM 2.8 mg/dL (1.8-2.4); PHOSPHORUS 4.9 mg/dL (2.5-4.9); POTASSIUM 4.2 mmol/L (3.5-5.1)
--- NOTE | 2021-04-18 07:19 | NUR ---
RN NOTE PATIENT RESTING IN BED. ON O2 3L VIA NASAL CANNULA O2 SAT 100%. DENIES ANY PAIN OR DISCOMFORT AT THIS TIME. IV ACCESS ON RIGHT FA #20 PATENT AND INTACT. NOTED WITH RIGHT CHEST WALL PERMACATH, DRESSING DRY AND INTACT. TURNED AND REPOSITIONED. BILATERAL SOFT WRIST RESTRAINTS NOTED, NO S/S OF ANY SKIN BREAKDOWN. BED LOCKED AND IN LOWEST POSITION. CALL LIGHT WITHIN REACH. ENDORSE TO AM SHIFT.
[2021-04-18 08:00] VITALS: BP 160/81
[2021-04-18] MEDS: BLOOD SUGAR DIAGNOSTIC 1 EACH STRIP IN SCH ×4 (08:33→22:40)
[2021-04-18] MEDS: FAMOTIDINE (20 MG) 20 MG TABLET PO SCH (08:34)
[2021-04-18] MEDS: LEVOTHYROXINE SODIUM 75 MCG TABLET PO SCH (08:34)
[2021-04-18] MEDS: ZINC SULFATE 220 MG CAPSULE PO SCH (08:35)
[2021-04-18] MEDS: DIVALPROEX SODIUM 500 MG TABLET.DR PO SCH (08:35)
[2021-04-18] MEDS: MULTIVIT W/MINERALS 1 TAB TABLET PO SCH (08:35)
[2021-04-18] MEDS: GABAPENTIN 100 MG CAPSULE PO SCH ×2 (08:35→21:42)
[2021-04-18] MEDS: LamoTRIgine 25 MG TABLET PO SCH ×2 (08:35→21:42)
[2021-04-18] MEDS: SEVELAMER CARBONATE 800 MG POWD.PACK PO SCH ×3 (08:35→17:12)
[2021-04-18] MEDS: LIOTHYRONINE SODIUM (5 MCG/TA 5 MCG TABLET PO SCH ×2 (08:35→17:12)
[2021-04-18] MEDS: methylPREDNISolone SOD SUCC 125 MG/2ML VIAL IV SCH (08:36)
[2021-04-18] MEDS: AMLODIPINE BESYLATE 10 MG TABLET PO SCH (08:37)
[2021-04-18] MEDS: THERAHONEY GEL 1.5 OZ TUBE TP SCH (09:30)
[2021-04-18] MEDS: APIXABAN 5 MG TABLET PO SCH ×2 (09:30→21:43)
[2021-04-18] MEDS ORDERED: LORAZEPAM 1 MG TABLET PO PRN (11:30)
[2021-04-18 12:00] VITALS: BP 148/90
[2021-04-18] MEDS: INSULIN REGULAR, HUMAN 100 UNIT/ML 3 ML VIAL SQ PRN ×3 (12:15→22:23)
[2021-04-18] MEDS ORDERED: DIVALPROEX SODIUM 250 MG TABLET.DR PO SCH (14:30)
[2021-04-18 16:00] VITALS: BP 149/67
--- NOTE | 2021-04-18 19:41 | NUR ---
RCVD PT ON 3L NC . PT IS ALERT AND AWAKE. Q4 BREATHING TX GIVEN PER MD'S ORDER. NO ADVERSE REACTION NOTED. NO RESPIRATORY DISTRESS NOTED AT THIS TIME. WILL CONTINUE TO MONITOR T/O SHIFT.
[2021-04-18 20:00] VITALS: BP 121/64
--- NOTE | 2021-04-18 20:00 | NUR ---
RN NOTE RECEIVED PT IN BED, ALERT AND ORIENTED X 3. ON O2 AT 3L. NOT IN ANY DISTRESS. NOTED WITH COUGHING, DENIES ANY SOB OR PAIN. PT ON TELE MONITORING SHOWS SR. IV ON RFA PATENT AND INTACT. PERMACATH ON RCW INTACT. PT RELEASED FROM RESTRAINTS, PT FOLLOWS COMMAND. WILL CONTINUE TO MONITOR. REID IN PLACE, WITH SOME URINE OUTPUT. ALL SAFETY MEASURES IN PLACE PER PROTOCOL.
[2021-04-18] MEDS: ATORVASTATIN 10 MG TABLET PO SCH (21:46)
[2021-04-18] MEDS: DIVALPROEX SODIUM 125 MG CAP.SPRINK PO SCH ×2 (21:46→22:00)
--- NOTE | 2021-04-18 23:59 | NUR ---
RN NOTE PATIENT SLEEPING, AROUSES EASILY. CALM AND COOPERATIVE. CONTINUE OFF RESTRAINTS, NO EPISODE OF PULLING TUBES. WILL CONTINUE TO MONITOR.
[2021-04-19] MEDS: ALBUTEROL HALF STRENGTH 1.25 MG/3 ML VIAL.NEB NEB SCH ×5 (03:24→15:36)
[2021-04-19] MEDS: IPRATROPIUM NEB FS 0.5 MG/2.5 ML AMPUL.NEB NEB SCH ×5 (03:24→15:36)
[2021-04-19 04:00] VITALS: BP 107/59
[2021-04-19] MEDS: hydrALAZINE HCL 25 MG TABLET PO SCH ×2 (06:00→15:09)
--- NOTE | 2021-04-19 06:59 | NUR ---
NURSE OPENING NOTE RECEIVE REPORT FROM OUT GOING NURSE. PATIENT IN STABLE CONDITION. A/O X3. RESTRAINTS DISCONTINUE. PATIENT FOLLOW COMMAND. EXPECTING DIALYSIS LATER TODAY. MEDICATION WILL BE CRUSH. ASPIRATION PRECAUTION. SAFETY MEASURE IN PLACE. BED ON THE LOWEST POSITION WITH HEAD OF THE BED ELEVATED. 3 SIDED RAIL UP. CALL LIGHT WITHIN REACH. WILL CONTINUE TO MONITOR.
--- NOTE | 2021-04-19 07:00 | NUR ---
RN NOTE NO SIGNIFICANT CHANGES NOTED FROM PT. REMAIN COOPERATIVE. NO NEED FOR RESTRAINTS. TOLERATING O2 THERAPY. DENIES ANY SOB OR CHEST PAIN. REID IN PLACE WITH 100ML URINE OUTPUT. WOUND TREATMENT WERE DONE ORDERED. TURNED AND REPOSITIONED. HELD HYDRALAZINE DUE TO DECREASED BP, PT SCHEDULED FOR DIALYSIS TODAY. ENDORSED TO NEXT SHIFT NURSE.
[2021-04-19] MEDS: BLOOD SUGAR DIAGNOSTIC 1 EACH STRIP IN SCH ×2 (07:51→11:37)
[2021-04-19] MEDS: SEVELAMER CARBONATE 800 MG POWD.PACK PO SCH ×2 (07:55→15:08)
[2021-04-19] MEDS: LEVOTHYROXINE SODIUM 75 MCG TABLET PO SCH (07:55)
[2021-04-19] MEDS: FAMOTIDINE (20 MG) 20 MG TABLET PO SCH (07:55)
[2021-04-19] MEDS: LIOTHYRONINE SODIUM (5 MCG/TA 5 MCG TABLET PO SCH (08:09)
[2021-04-19] MEDS: LamoTRIgine 25 MG TABLET PO SCH (08:09)
[2021-04-19] MEDS: GABAPENTIN 100 MG CAPSULE PO SCH (08:10)
[2021-04-19] MEDS: MULTIVIT W/MINERALS 1 TAB TABLET PO SCH (08:11)
[2021-04-19] MEDS: ZINC SULFATE 220 MG CAPSULE PO SCH (08:11)
[2021-04-19] MEDS: AMLODIPINE BESYLATE 10 MG TABLET PO SCH (08:16)
[2021-04-19] MEDS: APIXABAN 5 MG TABLET PO SCH (08:17)
[2021-04-19] MEDS: THERAHONEY GEL 1.5 OZ TUBE TP SCH (08:18)
[2021-04-19] MEDS ORDERED: LAMO25TA5 PO (08:22)
[2021-04-19] MEDS ORDERED: APIX5TAB PO (08:22)
[2021-04-19] MEDS ORDERED: DIVA125C2 PO ×2 (08:22)
[2021-04-19] MEDS ORDERED: DIVALPROEX SODIUM 125 MG CAP.SPRINK PO SCH (09:00)
[2021-04-19 12:00] VITALS: BP 107/65
[2021-04-19] MEDS ORDERED: INFLUENZA VACCINE 2021-22 0.5 ML DISP.SYRIN IM ONE (15:00)
[2021-04-19 15:09] VITALS: BP 116/82
--- NOTE | 2021-04-19 15:56 | NUR ---
NURSE NOTE. PATIENT HAVE BEEN DISCHARGED TO [facility]. REPORT WAS GIVEN TO SARAN HAGER. PATIENT WAS IN STABLE CONDITION AT THE TIME OF DISCHARGE. PATIENT CONTINUE TO RECEIVE OXYGEN VIA NC AT 4L. NO BELONGING WAS PRESENT. IV HAVE BEEN REMOVED. REPORT WAS GIVEN TO AMBULANCE.
== END 2021-04-19 15:50 | DRG 871 ==
LOC: ER 22:45 → TELE1 04-14 02:11 → MEDSG1 04-17 09:20
PROVIDERS: ADMIT Nurse Practitioner Acute Care; ATTEND Internal Medicine
PROC: 5A09457 Assistance with Respiratory Ventilation, 24-96 Consecutive Hours, Continuous Positive Airway Pressure (ICD-10-PCS; principal; 2021-04-14)
PROC: 5A1D70Z Performance of Urinary Filtration, Intermittent, Less than 6 Hours Per Day (ICD-10-PCS; 2021-04-14)
DX: A41.9 Sepsis, unspecified organism (principal); I50.33 Acute on chronic diastolic (congestive) heart failure; J96.22 Acute and chronic respiratory failure with hypercapnia; J96.21 Acute and chronic respiratory failure with hypoxia; N18.6 End stage renal disease; J69.0 Pneumonitis due to inhalation of food and vomit; J15.9 Unspecified bacterial pneumonia; D68.59 Other primary thrombophilia; I13.2 Hypertensive heart and chronic kidney disease with heart failure and with stage 5 chronic kidney disease, or end stage renal disease; K51.90 Ulcerative colitis, unspecified, without complications; D63.1 Anemia in chronic kidney disease; E03.9 Hypothyroidism, unspecified; E11.22 Type 2 diabetes mellitus with diabetic chronic kidney disease; I48.0 Paroxysmal atrial fibrillation; E78.5 Hyperlipidemia, unspecified; Z99.2 Dependence on renal dialysis; Z20.822 Contact with and (suspected) exposure to COVID-19; Z79.51 Long term (current) use of inhaled steroids; Z79.4 Long term (current) use of insulin; Z79.899 Other long term (current) drug therapy; E11.40 Type 2 diabetes mellitus with diabetic neuropathy, unspecified; Z86.711 Personal history of pulmonary embolism; Z87.01 Personal history of pneumonia (recurrent); Z87.891 Personal history of nicotine dependence; Z66 Do not resuscitate; Z87.19 Personal history of other diseases of the digestive system; Z74.09 Other reduced mobility; F31.9 Bipolar disorder, unspecified; D63.8 Anemia in other chronic diseases classified elsewhere; T68.XXXA Hypothermia, initial encounter; Y95 Nosocomial condition; J45.909 Unspecified asthma, uncomplicated; M89.9 Disorder of bone, unspecified; D75.839 Thrombocytosis, unspecified
CPT/HCPCS: 36415; 36600; 71045-TC; 80048-TC; 80076-TC; 80202-TC; 82728-TC; 82803-TC; 82962-TC; 83540-TC; 83605-TC; 83735-TC; 83880; 84100-TC; 84439-TC; 84443-TC; 84484-TC; 85025-TC; 85730-TC; 87040-TC; 87081-TC; 90935-TC; 92521; 92526; 92611-TC; 94660; 94760-TC; 94762-TC; 94799-TC; C9803; G0378; J1815; J2543; J2930; J3370; J7030; J7050; J7060; Q2036; U0003

== ENCOUNTER 2021-05-02 05:25 | Inpatient (IN) | payer MEDICARE, OTHER ==
[2021-05-02] VITALS (27 sets, daily range): BP systolic 49–86; BP diastolic 26–52
[~2021-05-02] VITALS: Ht 167.6 cm; Wt 46.3 kg
[~2021-05-02 05:25] MED LIST changes: +APIX5TAB PO; +DIVA125C2 PO; +LAMO25TA5 PO
--- NOTE | 2021-05-02 05:26 | NUR ---
PT AAOX0. BIBRA 78 FROM [facility] FOR ALTERED MENTAL STATUS. PER RA, PT'S BG WAS IN THE 20'S GIVEN D10 UPON ARRIVAL BY RA. PLACED IN BED 8, BG NOTED TO BE 113. PT NOTED TO BE ON 15L NR, SAT IN THE 70'S, LABORED BREATHING. LINES ESTABLISHED, BLOOD COLLECTED, SENT TO LAB. REID PLACED, URINE SENT TO LAB. ER AT BEDSIDE, WILL INTUBATE PT.
[2021-05-02] MEDS ORDERED: DEXTROSE 50%-WATER 50 ML DISP.SYRIN ONE (05:28)
[2021-05-02] MEDS ORDERED: GLUCAGON,HUMAN RECOMBINANT 1 MG/VIAL VIAL ONE (05:29)
--- NOTE | 2021-05-02 05:30 | NUR ---
RT AT BEDSIDE FOR INTUBATION.
[2021-05-02 05:48] LABS: RED BLOOD CELL COUNT(AUTO) 3.27 MIL/uL (4.5-6.0)
[2021-05-02 05:53] LABS: BILIRUBIN,URINE Negative (NEGATIVE); COLOR,URINE YELLOW (YELLOW); LEUKOCYTE ESTERASE ,URINE Negative (NEGATIVE); NITRITE, URINE Negative (NEGATIVE); PH,URINE 8.5 (5.0-8.0); PROTEIN,URINE >=300 mg/dl (NEGATIVE); UGLUCOSE Negative (NEGATIVE); UROBILINOGEN,URINE 0.2 EU/dL (0.2)
[2021-05-02 05:55] LABS: CALCIUM, SERUM 8.5 mg/dL (8.5-10.1); CARBON DIOXIDE 28 mmol/L (21-32); CHLORIDE 102 mmol/L (98-107); CREATININE 4.4 mg/dL (0.6-1.3); GLUCOSE 82 mg/dL (74-106); POTASSIUM 4.8 mmol/L (3.5-5.1); SODIUM SERUM 139 mmol/L (136-145); UREA NITROGEN, BLOOD 39 mg/dL (7-18)
--- NOTE | 2021-05-02 05:59 | NUR ---
RT NOTE CALLED TO ER #5 FOR INTUBATION. ON ARRIVAL PT WAS BREATHING AGONALLY. PT INTUBATED VIA 7.5 ETT @ 23CM LIP LINE. POSITIVE COLOR CHANGE AND BILATERAL BS NOTED. ETT SECURED AND PT PLACED ON [facility] VENT ON ORDERED SETTINGS OF AC 20, 450, 100%, 0. VENT PLUGGED INTO RED OUTLET. ALARMS ARE SET AND AUDIBLE. WILL CONTINUE TO MONITOR. Addendum: 05/02/21 at 0627 by ARACELI LA RT Amended: Links added.
[2021-05-02 06:01] LABS: BASOPHILS # (AUTO) 0.3 K/uL (0.0-0.2); BASOPHILS % (AUTO) 1.2 % (0.0-2.0); EOSINOPHILS % (AUTO) 3.3 % (0.0-6.0); HEMATOCRIT 31 % (39-51); HEMOGLOBIN 9.6 g/dL (13.5-17.5); LYMPHOCYTES % (AUTO) 15.2 % (20.0-44.0); MEAN CORPUSCULAR HGB CONC 31 g/dl (31.0-36.0); MEAN CORPUSCULAR VOLUME 95 fL (80-96); MONOCYTES % (AUTO) 7.5 % (2.0-12.0); NEUTROPHILS # (AUTO) 19.3 K/uL (1.8-8.9); NEUTROPHILS % (AUTO) 72.8 % (43.0-81.0); PLATELET COUNT (AUTO) 442 K/uL (150-450); WHITE BLOOD COUNT (AUTO) 26.6 K/uL (4.3-11.0)
[2021-05-02 06:02] LABS: ALANINE AMINOTRANSFERASE 17 U/L (12-78); ALBUMIN 1.6 g/dL (3.4-5.0); ALKALINE PHOSPHATASE 128 U/L (46-116); ASPARTATE AMINOTRANSFERASE 44 U/L (15-37); BILIRUBIN,DIRECT 0.1 mg/dL (0.0-0.2); BILIRUBIN,TOTAL 0.3 mg/dL (0.2-1.0); TOTAL PROTEIN, SERUM 7.7 g/dL (6.4-8.2)
[2021-05-02] MEDS ORDERED: PROPOFOL 100 ML ONE (06:03)
[2021-05-02 06:11] LABS: BACTERIA,URINE None seen /HPF (None Seen); RBC,URINE 0-2 /HPF (0-2); SQUAMOUS EPITHELIAL CELL,UR Few /HPF (None Seen); WBC,URINE 0-2 /HPF (0-3)
[2021-05-02] MEDS ORDERED: NOREPINEPHRINE 4 MG/4 ML AMPUL IV ONE (06:36)
[2021-05-02] MEDS ORDERED: NOREPINEPHRINE 8 MG in IV NS 0.9% 250 ML IV ONE (07:00)
[2021-05-02] MEDS ORDERED: FENTANYL CITRATE/PF 1,250 MCG in IV NS 0.9% 225 ML IV PRN (07:00)
[2021-05-02] MEDS ORDERED: FUROSEMIDE 20 MG/2 ML VIAL ONE (07:16)
[2021-05-02] MEDS ORDERED: PIPERACILLIN /TAZOBACTAM 3.375 G in IV D5W 50 ML IV ONE (07:30)
[2021-05-02] MEDS ORDERED: LEVOFLOXACIN 750 MG /D5W 150ML 150 ML IV ONE ×2 (07:30→08:59)
[2021-05-02] MEDS ORDERED: FUROSEMIDE 20 MG/2 ML VIAL IV ONE (07:30)
[2021-05-02] MEDS ORDERED: PIPERACILLIN /TAZOBACTAM 3.375 G VIAL IV ONE (07:42)
--- NOTE | 2021-05-02 07:59 | NUR ---
TAKEN TO CT WITH RT AND NURSES
[2021-05-02] MEDS ORDERED: FOLI0.8T23 PO (08:08)
[2021-05-02] MEDS ORDERED: LACT10SO3 PO (08:08)
[2021-05-02] MEDS ORDERED: [UNRECOGNIZED DRUG - CODE] IV (08:08)
[2021-05-02] MEDS ORDERED: ZOLP5TAB8 PO (08:08)
[2021-05-02] MEDS ORDERED: ASCO500C17 PO (08:08)
[2021-05-02] MEDS ORDERED: IPRA4AER IH (08:08)
[2021-05-02] MEDS ORDERED: POLY17PO4 PO (08:08)
--- NOTE | 2021-05-02 08:18 | NUR ---
THE PATIENT IS BACK FROM CT
[2021-05-02] MEDS ORDERED: Z GUARD REMEDY 2 OZ OINT TP PRN (08:30)
[2021-05-02] MEDS ORDERED: ACETAMINOPHEN 650 MG/SUPP.RECT RC PRN (08:30)
[2021-05-02] MEDS ORDERED: IV D5/0.45 NACL 1,000 ML IV PRN (08:30)
[2021-05-02] MEDS ORDERED: ONDANSETRON HCL/PF 4 MG/2 ML VIAL IVP PRN (08:30)
[2021-05-02] MEDS ORDERED: DEXTROSE 50%-WATER 50 ML DISP.SYRIN IV PRN (08:30)
[2021-05-02] MEDS ORDERED: INSULIN REGULAR, HUMAN 100 UNIT/ML 3 ML VIAL SQ PRN (08:30)
[2021-05-02] MEDS ORDERED: KEY,NONCONTROL,TO KEEP IN PYXI 1 EA MC ONE (08:35)
--- NOTE | 2021-05-02 08:54 | NUR ---
RT FOUND PT ON FOLLOWING SETTINGS: AC 18, 400 VT, 100%. REPORTED ABG RESULTS TO DR. LOPEZ. PHYSICIAN STATES TO MAINTAIN SpO2 > 88%. AT 0857, PT SPO2 89%. NO VENT CHANGES ORDERED AT THIS TIME. FOLLOW UP ABG ORDERED AFTER PT IS FULLY SEDATED. NURSE LEO LEES.
[2021-05-02] MEDS ORDERED: FAMOTIDINE/PF INJ 20 MG/2 ML VIAL IV SCH (09:00)
[2021-05-02] MEDS ORDERED: MIDAZOLAM HCL 2 MG/2ML VIAL IV ONE (09:00)
[2021-05-02] MEDS ORDERED: HEPARIN SODIUM, PORCINE 5000 UNITS/1 ML VIAL SQ SCH (09:00)
[2021-05-02] MEDS ORDERED: HEPARIN SODIUM, PORCINE 5000 UNITS/1 ML VIAL ONE (09:03)
[2021-05-02] MEDS ORDERED: MIDAZOLAM HCL 2 MG/2ML VIAL ONE (09:04)
[2021-05-02] MEDS ORDERED: FAMOTIDINE/PF INJ 20 MG/2 ML VIAL IV ONE (09:04)
[2021-05-02 09:12] LABS: ABG BASE EXCESS -5.2 mmol/L; ABG OXYGEN SATURATION 73.8 % (92.0-98.5); ABG PCO2 51.9 mmHg (35.0-45.0); ABG PO2 42.6 mmHg (75.0-100.0); AaDO2 618.5 mmHg; COHb 0.5 % (0.5-1.5); MetHb 0.3 % (0.0-1.5); O2Hb 73.2 % (94.0-97.0); PEEP,BG 0 cm H2O; SITE, ABG Left Radial; VT, ABG 400 mL
[2021-05-02] MEDS: NOREPINEPHRINE 8 MG in IV NS 0.9% 242 ML IV PRN ×2 (09:51→11:59)
[2021-05-02 10:17] LABS: ABG BASE EXCESS -4.6 mmol/L; ABG OXYGEN SATURATION 83.8 % (92.0-98.5); ABG PCO2 62.9 mmHg (35.0-45.0); ABG PH 7.201 (7.350-7.450); ABG PO2 55.4 mmHg (75.0-100.0); AaDO2 594.7 mmHg; COHb 0.3 % (0.5-1.5); MetHb 0.3 % (0.0-1.5); O2Hb 83.3 % (94.0-97.0); PEEP,BG 0 cm H2O; SITE, ABG Left Radial; VT, ABG 400 mL
--- NOTE | 2021-05-02 10:27 | NUR ---
RT POST ABG RESULTS SHOWN TO DR. LOPEZ. INCREASE RR TO 20, INCREASE VT TO 450 AND PEEP +5 PER MD ORDER. WILL CONTINUE TO MONITOR THE PATIENT FOR ANY CHANGES. RN NOTIFIED. Addendum: 05/02/21 at 1133 by CHERYL WASHINGTON RT Amended: Links added.
[2021-05-02] MEDS ORDERED: SODIUM BICARBONATE SYR 50 MEQ/50 ML DISP.SYRIN IV ONE (10:35)
[2021-05-02] MEDS ORDERED: EPINEPHRINE (1:10,000) SYRINGE 1 MG/10 ML DISP.SYRIN IVP ONE (10:35)
[2021-05-02] MEDS ORDERED: ETOMIDATE 2 MG/ML VIAL IV ONE (10:37)
--- NOTE | 2021-05-02 10:42 | NUR ---
DIRECTOR ACCOUNT MANAGEMENT NOTES PATIENT ADMITTED FROM ER ON 65Y/OLD MALE ON Dx OF SEPTIC SHOCK, T-98, BS-51, BP 79/52, P-96, R-23, 02- 94, ETT/VENT FIO2-100, PEEP-5, AC-20. PATIENT ON CRITICAL CONDITION. IV ACCESS ON RIGHT AC AREA, INFUSING FENTANYL 50MCG/KG/HR, LEVOPHED 1 MCG/KG/HR, AND D5/1/2 NS AT 75 ML/HR. SKIN IS VERY DRY, WOUND SACRAL AREA, UNABLE TO TAKE PICTURE AT THIS TIME, BECAUSE OF PATIENT CONDITION IS CRITICAL. RIGHT UPPER CHEST IS HD CATH INTACT. DOLEY DRAINING YELLOW OUTPUT. WILL FOLLOW UP HOSPITALIST NEXT TO THE BED.
--- NOTE | 2021-05-02 11:00 | NUR ---
rn notes bs-51mg/dl, dextrose given.
--- NOTE | 2021-05-02 11:16 | NUR ---
THE PATIENT IS TRANSFERED TO ASSIGNED ROOM PER ACLS POLICY
[2021-05-02] MEDS ORDERED: BLOOD SUGAR DIAGNOSTIC 1 EACH STRIP IN SCH (12:00)
[2021-05-02] MEDS ORDERED: PHENYLEPHRINE 50 MG in IV NS 0.9% 245 ML IV PRN (12:00)
[2021-05-02 12:35] LABS: ABG BASE EXCESS -5.8 mmol/L; ABG OXYGEN SATURATION 69.6 % (92.0-98.5); ABG PCO2 47.5 mmHg (35.0-45.0); ABG PH 7.265 (7.350-7.450); AaDO2 626.5 mmHg; COHb 0.5 % (0.5-1.5); MetHb 0.1 % (0.0-1.5); O2Hb 69.2 % (94.0-97.0); SITE, ABG Left Radial; VENT MODE, BG AC 20 450 +5 100%
[2021-05-02] MEDS ORDERED: PIPERACILLIN /TAZOBACTAM 2.25 G in IV D5W 50 ML IV SCH (13:00)
--- NOTE | 2021-05-02 13:02 | NUR ---
RN NOTES BP 75/30 CALLED HOSPITALIST FOR SECOND PRESSOR , GET ORDER NEOSYNEPHRINE IV DRIP ORDER TAKEN AND CARRIED OUT.
--- NOTE | 2021-05-02 13:28 | NUR ---
RN NOTES CALL HOSPITALIST SPRING FULLER FOR THIRD PRESSORS BECAUSE PATIENT ON LEVOPHED 1 MCG/KG/HR MAX DOSE , AND NEOSSYNEPHRINE 3 MCG/KG/HR MAX DOSE, BP 72/40, P-94, O2-71, R-27. GET ORDER VASOPRESSIN IV DRIP. ORDER TAKEN AND CARRIED OUT.
[2021-05-02] MEDS ORDERED: VASOPRESSIN INJ 40 UNIT in IV NS 0.9% 38 ML IV PRN (13:30)
--- NOTE | 2021-05-02 13:35 | NUR ---
RN NOTES PATIENT FAMILY NEXT TO THE BED TO SAY GOODBYE PATIENT BECAUSE OF DNR, AND TALKING WITH SLOT MACHINE REPAIRER Dr RIVERA.
[2021-05-02] MEDS ORDERED: LORAZEPAM INJ 2 MG/ML VIAL IV PRN (14:00)
[2021-05-02] MEDS ORDERED: MORPHINE SULFATE PF DRIP 250 MG in IV D5W 240 ML IV PRN (14:00)
--- NOTE | 2021-05-02 14:08 | NUR ---
rn notes patients family brother, and his son make decision to the comfort care. Hospitalist Edi DNP with the family. Get new order extubate patient, RT notified. will follow up with new morphine Dripps 2 mcg/kg/hr, and Ativan 1mg/ml iv push.
[2021-05-02] MEDS ORDERED: Z GUARD REMEDY 2 OZ OINT TP SCH (14:30)
--- NOTE | 2021-05-02 14:43 | NUR ---
RN NOTES PATIENT PRONOUNCED MOLDER PIPE COVERING NURSE MASOOD, AND LEO RN, PATIENT HAS NO AUDIBLE HEART TONE, NO BP, NO RR. NOTIFIED [place] [employer] SUPERVISOR CHENTE HAGER, ADMITTING MARILIN AND FAMILY BROTHER NAME BURAK JAEGER. POST MORTEM CARE DONE. PATIENT HAS NO BELONGING, ID TAG APPLIED. PER BROTHER MORTUARY WILL DEPARTMENT MANAGER BOY IS [place] [employer] PERSONNEL NAME IS GINA INGRAM PHONE #[phone].
--- NOTE | 2021-05-02 14:43 | NUR ---
RN NOTE PT ON COMFORT CARE WITH MORPHINE DRIP. FOUND PT APNEIC, ASYSTOLIC, AREFLEXIVE. PRONOUNCED AT 1443. FAMILY NOTIFIED BY PHONE.
--- NOTE | 2021-05-02 15:00 | NUR ---
rn notes called [facility] [employer] at this time personnel is spoken name is Judy, case NUMBER is [id number].
--- NOTE | 2021-05-02 17:46 | NUR ---
RN NOTES PATIENT BODY RELEASED AT THIS TIME VIA [facility] PERSONNEL YANET, AND PARTNER, PHONE # [phone]. PATIENT HAS NO BELONGING.
== END 2021-05-02 17:56 | DRG 871 ==
LOC: ER 05:27 → TRANSITION 08:23 → ICU 09:39
PROVIDERS: ADMIT Hospitalist; ATTEND Hospitalist
PROC: 5A1935Z Respiratory Ventilation, Less than 24 Consecutive Hours (ICD-10-PCS; principal; 2021-05-02)
PROC: 0BH17EZ Insertion of Endotracheal Airway into Trachea, Via Natural or Artificial Opening (ICD-10-PCS; 2021-05-02)
PROC: 5A2204Z Restoration of Cardiac Rhythm, Single (ICD-10-PCS; 2021-05-02)
DX: A41.9 Sepsis, unspecified organism (principal); J96.01 Acute respiratory failure with hypoxia; R65.21 Severe sepsis with septic shock; N18.6 End stage renal disease; J18.9 Pneumonia, unspecified organism; E43 Unspecified severe protein-calorie malnutrition; I13.2 Hypertensive heart and chronic kidney disease with heart failure and with stage 5 chronic kidney disease, or end stage renal disease; K51.90 Ulcerative colitis, unspecified, without complications; J90 Pleural effusion, not elsewhere classified; D68.59 Other primary thrombophilia; Z68.1 Body mass index [BMI] 19.9 or less, adult; I31.3 Pericardial effusion (noninflammatory); Z66 Do not resuscitate; Z51.5 Encounter for palliative care; I48.91 Unspecified atrial fibrillation; I50.9 Heart failure, unspecified; Z99.2 Dependence on renal dialysis; Z79.01 Long term (current) use of anticoagulants; Z91.15 Patient's noncompliance with renal dialysis; E11.22 Type 2 diabetes mellitus with diabetic chronic kidney disease; Z86.711 Personal history of pulmonary embolism; Z87.01 Personal history of pneumonia (recurrent); Z79.899 Other long term (current) drug therapy; E11.42 Type 2 diabetes mellitus with diabetic polyneuropathy; Y95 Nosocomial condition; E03.9 Hypothyroidism, unspecified; E78.5 Hyperlipidemia, unspecified; F31.9 Bipolar disorder, unspecified; F41.9 Anxiety disorder, unspecified; Z79.51 Long term (current) use of inhaled steroids; Z79.4 Long term (current) use of insulin; E11.65 Type 2 diabetes mellitus with hyperglycemia; D64.9 Anemia, unspecified; I46.9 Cardiac arrest, cause unspecified
CPT/HCPCS: 31720; 36415; 36600; 70450-TC; 71045-TC; 80048-TC; 80076-TC; 81001; 82803-TC; 82962-TC; 83605-TC; 83880; 84484-TC; 85025-TC; 85730-TC; 87040-TC; 87081-TC; 87086-TC; 92950-TC; 94002-TC; 94762-TC; 94799-TC; 99082-TC; C9803; G0378; J0171; J1610; J1644; J1815; J1940; J1956; J2250; J2274; J2370; J2543; J3010; J3490; J7050; J7060; U0003